=== PATIENT | male | born 1965 | race Caucasian/White ===

== ENCOUNTER 2020-01-05 18:25 | Inpatient (IN) | payer MEDICARE, SELFPAY ==
[2020-01-05] VITALS (16 sets, daily range): BP systolic 99–133; BP diastolic 61–93; PULSE 46–99; RESP 14–20; TEMP 36.4–36.8; O2SAT 90–100; BMI 288827.8; BMI 28.8; BMI 26.3
--- NOTE | 2020-01-05 18:22 | ECG_ITS ---
APPROVED REPORT Exam: Resting ECG HR:49 bpm ECG Measurements Heart Rate 49 AXES QRSd 94 QRS 72 QT 450 T 93 QTc 406 <Conclusion> Junctional rhythm ST elevation, consider inferolateral injury or acute infarct ACUTE OR Consider right ventricular involvement in acute inferior infarct Abnormal ECG Electronically signed by : Ismael Ac, 01/06/2020 08:44:43
--- NOTE | 2020-01-05 18:30 | PC.NURSE ---
Spoke to solomon prior to pt arrival stated to call cardiac catheterization technician team in, [facility] confirmed via [facility] phone, Carlo is acquisition advisor for [facility] and was with solomon, is on his way in.
--- NOTE | 2020-01-05 18:31 | IR_ITS ---
APPROVED REPORT Patient Location: Emergent Account Installer: SIS Nguyen RT (R) PROCEDURES 1. Left heart catheterization 2. Selective coronary arteriography 3. Left ventriculography 4. PTCA/stent of the right coronary artery INDICATION 1. Acute myocardial infarction, 2. Abnormal EKG, 3. Third-degree heart block SCAI INDICATION Patient presented in the field with EMS with an acute myocardial infarction. Inferior myocardial infarction with elevation. Reciprocal changes. Brought directly to the cardiac catheterization laboratory. Catheters used for the procedure were a Karlie right #4 guide catheter with sideholes, a Karlie left diagnostic catheter and a pigtail catheter Informed consent was obtained prior to the procedure. COMPLICATIONS NONE Estimated Blood Loss: LESS THAN 10 ML TECHNIQUE One percent lidocaine was used to anesthetize the right groin. The right femoral artery was accessed via the Seldinger technique. A 4-Qatari sheath was placed in the right femoral artery. The JL-4 and JR-4 catheter was also used to perform left heart catheterization left ventriculogram and selective coronary angiogram. At the end of the procedure the patient was transferred to the post-op holding area in stable condition for arterial sheath removal. Heparin and Brilinta were given prior to the procedure. ACT greater than 300 ANGIOGRAPHIC RESULTS The left main artery Angiographically normal The left anterior descending artery Smooth 20% proximal stenosis The circumflex artery Moderate in size and angiographically normal The right coronary artery Large and dominant with 99.9% critical complex proximal stenosis followed by a 50 to 60% hazy mid/distal stenosis The JONES ventriculogram reveals Normal left ventricular function with an ejection fraction of 60% The left ventricular end-diastolic pressure 22 I initially started with a 6 Qatari sheath and a Karlie right #4 guide catheter with sideholes. Immediately wired on engagement of the right coronary artery. Primary stenting was done with a 3.0 x 26 mm resolute arti drug-eluting stent at 24 zach for 8 seconds. Resulted in 0% residual stenosis. Stented the mid/distal vessel with a 3.0 x 12 mm resolute Arti drug-eluting stent. Also resulted in 0% residual stenosis taken up at 21 zach for 10 seconds. Right common retrograde femoral arteriogram performed. Sheath placed in the right common femoral artery. Secondary to this an Angio-Seal device was deployed without difficulty IMPRESSION 1. Critical one-vessel coronary artery disease with critical stenosis noted in the proximal large dominant right coronary artery and moderate to severe stenosis in the mid/distal vessel 2. Mild diffuse disease in the left coronary system 3. Preserved normal left ventricular systolic function 4. Mild elevation in left ventricular end-diastolic pressure 5. Successful angioplasty and stenting of the proximal and mid/distal large dominant right coronary artery with resolute Arti drug-eluting stents resulting in 0% residual stenosis 6. Successful placement of an Angio-Seal device in the right common femoral artery PLAN 1. Patient will continue with aggressive medical therapy. Brilinta 180 mg x 1 was already given as well as aspirin. Continue on Brilinta 90 mg twice daily. Continue on aspirin daily. Aggressive retractor modification. Left ventricular function is preserved. Patient may need an IV dose of Lasix this evening if he gets short of breath secondary to stunning of the myocardium. The present time the left ventricular function is normal. Aggressive risk factor modification. Follow-up in cardiology clinic in 1 to 2 weeks for further ev
--- NOTE | 2020-01-05 18:33 | PC.NURSE ---
Pt prepped and ready for supervisor laboratory animal facility
--- NOTE | 2020-01-05 18:35 | PC.NURSE ---
Pt to labor custodian
--- NOTE | 2020-01-05 18:52 | HMH.EDCP ---
ED Disposition Clinical Impression: Chest pain, ST elevation myocardial infarction (STEMI) Disposition: Admitted As Inpatient Condition on Discharge: Good Instructions: DI for Atypical Chest Pain - Critical Care Critical Care Time: No Attestation: On , the high probability of a clinically significant, sudden or life threatening deterioration of the following system(s) required my full and direct attention, intervention and personal management. The time I documented below is in addition to time spent performing reported procedures but includes the following listed in this critical care notation. Medical Decision Making - Medical Records Medical records reviewed: Yes: I reviewed the patient's medical records. - William Inquiry Pt receiving controlled substance: No Vital Signs: 01/05/20 18:24 Temperature 98 F Temperature Source Oral Pulse Rate [Left Radial] 49 L Respiratory Rate 18 Blood Pressure [Right Arm] 133/93 H Blood Pressure Mean [Right Arm] 106 Blood Pressure Position [Right Arm] Sitting 02 Sat by Pulse Oximetry 98 Oxygen Delivery Method Room Air - Lab Data Lab results reviewed: Yes: I reviewed the patient's lab results. Orders (Tests/Meds): ED MEDICATIONS Generic Name Dose Route Start Last Admin Trade Name Freq PRN Reason Stop Dose Admin Diphenhydramine HCl 50 mg 01/05/20 18:29 01/05/20 18:46 Benadryl 50mg/1ml Vial IV 01/05/20 18:30 50 mg ONCE ONE Administration Fentanyl Citrate 50 mcg 01/05/20 18:29 Fentanyl 100mcg/2ml Vial IV 01/06/20 18:29 Q3MINP PRN Moderate to Severe Pain Fentanyl Citrate 25 mcg 01/05/20 18:29 Fentanyl 100mcg/2ml Vial IV 01/06/20 18:29 Q3MINP PRN Moderate to Severe Pain Flumazenil 0.2 mg 01/05/20 18:29 Romazicon 0.1mg/Ml 5ml Vial IV 01/05/20 23:00 NEEDED PRN Sedation Heparin Sodium (Porcine) 10,000 unit 01/05/20 18:29 Heparin 1,000 Units/Ml 10ml Vial (Machine Operator) IV 01/05/20 22:29 NEEDED PRN Emergency Box Laser Beam Machine Operator Heparin Sodium/Sodium Chloride 3,000 unit 01/05/20 18:29 01/05/20 18:46 Heparin 1000 Units/500ml Ns (Machine Operator) IV 07/24/20 18:30 3,000 unit ONCE ONE Administration Sodium Chloride 1,000 mls @ 25 mls/hr 01/05/20 18:30 01/05/20 18:46 Sod Chlor 0.9% 1000ml Bag IV 01/06/20 18:29 25 mls/hr .Q25H EFRAÍN Administration Sodium Chloride 1,000 mls @ 999 mls/hr 01/05/20 18:45 01/05/20 18:36 Sod Chlor 0.9% 1000ml Bag IV 01/05/20 19:45 999 mls/hr .Q1H1M EFRAÍN Administration Lidocaine HCl 20 ml 01/05/20 18:29 Lidocaine 1% 5ml Pf Vial IJ 01/05/20 18:30 ONCE ONE Lidocaine HCl 20 ml 01/05/20 18:29 01/05/20 18:46 Lidocaine 1% 10ml Mdv IJ 01/05/20 18:30 10 ml ONCE ONE Administration Midazolam HCl 1 mg 01/05/20 18:29 Midazolam 2mg/2ml Vial IV 01/06/20 18:29 Q3MINP PRN Sedation Midazolam HCl 1 mg 01/05/20 18:29 Midazolam 1mg/Ml 5ml Vial IV 01/06/20 18:29 Q3MINP PRN Sedation Naloxone HCl 0.4 mg 01/05/20 18:29 Narcan 0.4mg/Ml Vial IV 01/06/20 18:29 Q5MINP PRN Decreased Respirations Nitroglycerin 800 mcg 01/05/20 18:29 Nitroglycerin 800mcg/8ml Syr (Machine Operator) IV 01/06/20 18:29 NEEDED PRN Emergency Box Laser Beam Machine Operator Verapamil HCl 2.5 mg 01/05/20 18:29 Verapamil 2.5mg/Ml 2ml Vial IV 01/05/20 18:30 ONCE ONE Discontinued Medications Generic Name Dose Route Start Last Admin Trade Name Freq PRN Reason Stop Dose Admin Heparin Sodium (Porcine) 5,000 unit 01/05/20 18:34 01/05/20 18:32 Heparin Sodium 5,000 Units/Ml Vial IV 01/05/20 18:35 5,000 unit ONCE ONE Administration Morphine Sulfate 4 mg 01/05/20 18:37 01/05/20 18:33 Morphine 4mg/Ml Syringe IV 01/05/20 18:38 4 mg ONCE ONE Administration Ticagrelor 180 mg 01/05/20 18:38 01/05/20 18:33 Brilinta 90mg Tablet PO 01/05/20 18:39 180 mg ONCE ONE Administration - ECG Data
[2020-01-05 19:26] LABS: Anion Gap 14.7 mEq/L (5-15); Blood Urea Nitrogen 12 mg/dl (9-20); Calcium 9.4 mg/dl (8.4-10.2); Carbon Dioxide 26 mmol/L (22.0-30.0); Chloride 104 mmol/L (98-107); Creatinine Clearance Estimated 152 mL/min (50-200); Estimated Glomerular Filt Rate 101 ml/min (>60); GFR (African American) 122 ML/MIN (>60); Glucose 114 mg/dl (74-100); Sodium 142 mmol/L (136-145)
[2020-01-05 19:27] LABS: Potassium 2.7 mmoL/L (3.5-5.1)
[2020-01-05 19:28] LABS: Basophils # 0.1 K/mm3 (0-0.2); Basophils % 0.8 % (0.1-2.0); Eosinophils # 0.4 K/mm3 (0.0-0.4); Eosinophils % 2.8 % (0.1-12.0); Hemoglobin 17.8 g/dL (14.1-18.0); Lymphocytes # 6.5 K/mm3 (0.7-4.5); Lymphocytes % 43.6 % (10-50); Mean Corpuscular HGB Conc 35.5 g/dL (31.8-35.4); Mean Corpuscular Hemoglobin 31.9 pg (27.0-31.2); Mean Corpuscular Volume 89.8 fl (80-94); Monocytes # 0.8 K/mm3 (0.1-1.0); Monocytes % 5.4 % (1.7-9.3); Neutrophils # 7.1 K/mm3 (1.8-7.8); Neutrophils % 47.5 % (37.0-80.0); Platelet Count 305 K/mm3 (142-424); Red Blood Count 5.57 M/mm3 (4.60-6.20); Red Cell Distribution Width 13.5 % (11.5-17.5); White Blood Count 14.9 K/mm3 (4.8-10.8)
--- NOTE | 2020-01-05 19:47 | PC.NURSE ---
manufacturing laborer notified during report that pt has critical potassium level of 2.7
[2020-01-05 19:50] LABS: CATHL Activated Clotting Time 337 SEC (74-125)
--- NOTE | 2020-01-05 19:51 | PC.NURSE ---
patient up to floor via stretcher.
--- NOTE | 2020-01-05 21:04 | PC.NURSE ---
Pt sleeping at this time. VSS. (R) groin cath site with DSG C/D/I. No drainage or hematoma noted. Med reconciliation not obtained at this time due to pt sleeping. Daughter states pt takes a medication for his heart, but is not aware of what it is. Pt's daughter is also concerned about medication that pt will be placed on due to costs. Pt does not have insurance according to daughter.
--- NOTE | 2020-01-05 22:31 | PC.NURSE ---
Pt is currently sitting up in bed. Denies any discomfort at this time. Has sat up on side of bed and urinated 200 ml dark yellow urine. VSS. BP 116/83, HR 61, O2 99% RA, T 97.5 A. Pt is currently Sinus rhythm on telemetry with ST elevation. MD aware. 60 mg of potassium administered per aug. (R) groin cath site remains C/D/I. No drainage noted to DSG. No hematoma noted. Will continue to monitor.
--- NOTE | 2020-01-05 22:36 | PC.NURSE ---
Pt states he takes a blood pressure medicine sometimes. He stated he thinks it's metoprolol. He also stated that he is suppose to take a cholesterol medicine, but hasn't been taking it.
[2020-01-06] VITALS (13 sets, daily range): BP systolic 103–132; BP diastolic 67–90; PULSE 60–78; RESP 14–22; TEMP 36.5–36.9; O2SAT 97–100; BMI 26.4
[2020-01-06 06:38] LABS: Basophils # 0.1 K/mm3 (0-0.2); Basophils % 0.4 % (0.1-2.0); Eosinophils # 0.1 K/mm3 (0.0-0.4); Eosinophils % 0.8 % (0.1-12.0); Hematocrit 45.9 % (42.0-52.0); Lymphocytes # 3.1 K/mm3 (0.7-4.5); Lymphocytes % 23.3 % (10-50); Mean Corpuscular HGB Conc 34.4 g/dL (31.8-35.4); Mean Corpuscular Hemoglobin 31.4 pg (27.0-31.2); Mean Corpuscular Volume 91.4 fl (80-94); Mean Platelet Volume 7.8 fl (7.4-10.4); Monocytes # 0.4 K/mm3 (0.1-1.0); Monocytes % 3.3 % (1.7-9.3); Neutrophils # 9.6 K/mm3 (1.8-7.8); Neutrophils % 72.3 % (37.0-80.0); Platelet Count 222 K/mm3 (142-424); Red Blood Count 5.02 M/mm3 (4.60-6.20); Red Cell Distribution Width 13.7 % (11.5-17.5); White Blood Count 13.3 K/mm3 (4.8-10.8)
[2020-01-06 07:10] LABS: Hemoglobin 15.8 g/dL (14.1-18.0)
[2020-01-06 07:33] LABS: Chloride 106 mmol/L (98-107); Potassium 4.9 mmoL/L (3.5-5.1); Sodium 138 mmol/L (136-145)
[2020-01-06 07:36] LABS: Anion Gap 11.9 mEq/L (5-15); Blood Urea Nitrogen 12 mg/dl (9-20); Carbon Dioxide 25 mmol/L (22.0-30.0); Creatinine Clearance Estimated 186 mL/min (50-200); Estimated Glomerular Filt Rate 140 ml/min (>60); GFR (African American) 170 ML/MIN (>60)
[2020-01-06 07:37] LABS: Calcium 8.6 mg/dl (8.4-10.2); Glucose 123 mg/dl (74-100)
--- NOTE | 2020-01-06 08:34 | HMH.HP ---
*Admission Date: 01/05/20 *Chief complaint: Chest pain *History of present illness: Norman is a 54-year-old white male with a history of hypertension and hyperlipidemia. He is known to me from a single office visit about 4 months ago to establish care. At that time his blood pressure medication was refilled and he was also diagnosed with hyperlipidemia and started on Crestor although he states he could not afford the medication. Two days ago he began having some mild chest pains and yesterday the chest pain became worse and persisted throughout the day the pain radiated to his neck and was associated with some nausea. He finally called EMS and was transported to [facility]. In route to the ER, his EKG showed ST elevation in the inferior leads. On arrival, he was routed through the emergency room and taken directly to the Freight Manager where he underwent left heart cath with findings of critical stenosis in the RCA which was stented with [address] Adonay Matos. Risk factors for heart disease include hypertension, hyperlipidemia, male gender, tobacco abuse, family history. This morning, he states he is feeling better. He still notes some twinges of chest pain and feels slightly short of breath. His vital signs of been stable and monitor shows no arrhythmias. [facility] History Medical History: Reports:: Hyperlipidemia, Hypertension, Migraine Denies:: Diabetes Mellitus Type 1, Diabetes Mellitus Type 2 *Have you ever received a pneumonia vaccine?: No *Have you received a flu vaccine this season?: No Other Medical History: Reports: Other (herniated disc with chronic back pain) Other Surgeries: Yes: Cardiac Catheterization, Other (ear sugery) - *Social History Last grade of school completed: High school graduate Smoking Status: Current every day smoker Tobacco Type: cigarettes # Packs/Day (cigarettes): 2 Alcohol Intake: current Alcohol Intake Frequency:: holidays/special occasions only *Occupational Status:: disabled (back injury) Housing: other Household Members: other *Travel in the last 8 weeks: None Family Hx:: Coronary Artery Disease, Heart Attack (father), Hypertension (mother, sister) Review of Systems - Constitutional Denies chills, Denies fever(s) - Eyes Denies change in vision - ENT Reports hearing loss, Denies headache(s) - *Cardiovascular Reports other (See HPI) - *Respiratory Denies chest congestion, Denies cough, Denies shortness of breath - *Gastrointestinal Reports heartburn, Reports nausea, Denies abdominal pain, Denies vomiting - *Genitourinary Denies difficulty urinating, Denies painful urination - *Musculoskeletal Reports back pain - Integumentary/Breasts Denies yellowing of the skin, Denies itching - *Neurologic Denies confusion, Denies dizziness, Denies tremor(s) - Psychiatric Denies anxiety, Denies depression, Denies memory loss - Endocrine Denies excessive sweating - Hematologic/Lymphatic Denies easy bruising - Allergic/Immunologic Denies itchy eyes Meds Home Medications Medication Instructions Recorded Confirmed Type Metoprolol Succinate [Metoprolol 25 mg PO DAILY 01/06/20 01/06/20 History Succinate 25mg Tablet*] Rosuvastatin Calcium 20 mg PO HS 01/06/20 01/06/20 History Allergies Allergy/AdvReac Type Severity Reaction Status Date / Time No Known Allergies Allergy Verified 01/05/20 18:29 Exam Vital signs and Labs for Last 24 Hours: Temp Pulse Resp BP Pulse Ox 97.7 F 64 22 123/85 99 01/06/20 08:00 01/06/20 06:00 01/06/20 08:00 01/06/20 06:00 01/06/20 08:00 Laboratory Results - last 24 hr 01/05/20 18:00: Activated Clotting Time 337 H* 01/05/20 18:05: WBC 14.9 H, RBC 5.57, Hgb 17.8, Hct 50.0, MCV 89.8, MCH 31.9 H, MCHC 35.5 H, RDW 13.5, Plt Count 305, MPV 8.0, Neut % (Auto) 47.5, Lymph % (Auto) 43.6, Rosebud % (Auto) 5.4, Eos % (Auto) 2.8, Baso % (Auto) 0.8, Neut # (Auto) 7.1, Lymph # (Auto) 6.5 H, Rosebud # (Auto) 0.8, Eos # (
--- NOTE | 2020-01-06 09:39 | HMH.PHAVTE ---
[facility] Pharmacy VTE Monitoring - Patient Demographics Admission date: 01/05/20 Report Date: 01/06/20 Time: 09:39 Allergies/Adverse Reactions: Patient Allergies No Known Allergies Allergy (Verified 01/05/20 18:29) Height: 1.88 m Weight: 93.525 kg Patient Problems: Current Active Problems Chest pain (Acute) ST elevation myocardial infarction (STEMI) (Acute) - VTE Risk Labs: VTE Related Lab Results Hgb 15.8 g/dL (14.1-18.0) D 01/06/20 06:05 Hct 45.9 % (42.0-52.0) 01/06/20 06:05 Plt Count 222 K/mm3 (142-424) D 01/06/20 06:05 BUN 12 mg/dl (9-20) 01/06/20 06:05 Creatinine 0.60 mg/dl (0.66-1.25) L D 01/06/20 06:05 Estimated Creat Clear 186 mL/min (50-200) 01/06/20 06:05 VTE Risk Level: Moderate Risk - Prophylaxis VTE Prophylaxis Ordered?: Yes Types of VTE Prophylaxis: TEDS Knee High Location of Applied Device: Bilateral Lower Extremeties
--- NOTE | 2020-01-06 09:56 | HMH.PHAINT ---
HOME MEDICATIONS RECONCILED FROM RX LIST FROM A.
--- NOTE | 2020-01-06 15:36 | PC.NURSE ---
PT IS CURRENTLY RESTING IN BED WITH EYES CLOSED. PT HAS BEEN ALERT AND ORIENTED*4 T/O SHIFT, NO COMPLAINTS OF PAIN. PT DID COMPLAIN OF SOA THIS AM BUT SAYS IT IMPROVED ON ITS OWN, VSS, SINUS WITH SLIGHT ST ELEVATION ON TELEMETRY, NO COMPLAINTS OF CHEST PAIN AT THIS TIME, CATH SITE IS C/D/I WITH NO DRAINAGE, BLEEDING, OR HEMATOMA NOTED, PT DENIES PAIN UPON PALPATION, PEDAL PULSES PALPABLE BILATERALLY, PT HAS AMBULATED TO PER SELF THIS SHIFT WITH NO C/O DIZZINESS WITH AMBULATION. PT C/O NAUSEA THIS AFTERNOON PRN ZOFRAN ADMIN PER MAR SYMPTOMS IMPROVED STATED BY PT,
--- NOTE | 2020-01-06 19:32 | PC.NURSE ---
patient stated he wants to go home, educated on risks leaving against medical advice. patient continues to state he wants to go home, daughter will come get him. dr. varela notified, wants patient o continue brillinta 90 mg bid and asa [address] varela would also like patient to make and appointment wednesday.
--- NOTE | 2020-01-06 19:43 | PC.NURSE ---
discussed discharge instructions for brillinta, asa and follow up appointment. patient agreeable, ama form signed and witnessed
--- NOTE | 2020-01-06 19:49 | PC.NURSE ---
Addendum entered by Dorothea Montes RN 01/06/20 19:53: iv removed from left ac Original Note: 18 guage iv catheter removed from right a/c, no signs of infiltrated. patient tolerated procedure without incident. patient denies cp at this time
--- NOTE | 2020-01-06 19:59 | PC.NURSE ---
after patient left floor, patients room smelled of cigarette smoke.
--- NOTE | 2020-01-08 07:41 | HMH.PHACLD ---
Richmond Gaines has received discharge medication counseling on the following medications: PATIENT WAS NOT COUNSELED ON DISCHARGE MEDICATIONS BECAUSE PATIENT LEFT AMA DURING ENGINEERING DRAWINGS CHECKER ON 01/06/20. PATIENT WAS SENT HOME WITH A 30 DAY SUPPLY OF BRILINTA AND WAS TOLD TO RESUME METOPROLOL AND CRESTOR. PATIENT WAS ALSO TOLD TO START ASPIRIN [address] MCNEILL. TERESSA/ARB WAS NOT ADDRESSED BEFORE HE LEFT AMA. PATIENT DID COMPLAIN TO NURSE THAT CRESTOR WAS TOO EXPENSIVE TO FILL AND BRILINTA WAS CAUSING SHORTNESS OF AIR. PATIENT WAS TOLD TO STAY TO GET THESE ISSUES ADDRESSED BUT HE DID NOT.
--- NOTE | 2020-01-08 09:12 | HMH.DCSUM ---
General - General Admission date:: 01/05/20 <Kraig Wilson - 01/22/20 08:08> 01/05/20 <RamseyCassi che - 01/08/20 09:39> Discharge date: 01/06/20 <Cassi Ramsey - 01/08/20 09:39> HPI HPI: Norman is a 54-year-old white male with a history of hypertension and hyperlipidemia. He was known to Dr. Wilson from a single office visit about 4 months ago to establish care. At that time his blood pressure medication was refilled and he was also diagnosed with hyperlipidemia and started on Crestor although he stated that he could not afford the medication. Two days prior to admission he began having some mild chest pains. The chest pain became worse and persisted throughout the day and radiated to his neck and was associated with some nausea. He finally called EMS and was transported to [facility]. In route to the ER, his EKG showed ST elevation in the inferior leads. On arrival, he was routed through the emergency room and taken directly to the [facility]usement [facility] Entertainer where he underwent left heart cath with findings of critical stenosis in the RCA which was stented with [address] Adonay Matos. Risk factors for heart disease include hypertension, hyperlipidemia, male gender, tobacco abuse, family history. The following morning, he stated that he was feeling better. He still noted some twinges of chest pain and felt slightly short of breath. His vital signs were stable and monitor showed no arrhythmias. <Cassi Ramsey - 01/08/20 09:39> Hospital Course Hospital Course: In the emergency room patient was noted to have a [address] elevation in the inferior leads. He was given heparin 5000 units IV once along with morphine 4 mg IV and Brilinta 180 mg. He was also given verapamil 2.5 mg IV once. He was taken straight to the cardiac [facility]. Cath results revealed a one-vessel coronary artery disease with critical stenosis in the proximal large dominant right coronary artery and moderate to severe stenosis in the mid/distal vessel. Also noted was mild diffuse disease in the left coronary artery. He had preserved normal left ventricular systolic function with mild elevation in the left ventricular end-diastolic pressure. Successful angioplasty and stenting of the proximal and mid/distal large dominant right coronary artery. Successful placement of an Angio-Seal device in the right common femoral artery. On admission white blood cell count was 14,900 with a hemoglobin of 17.8 and hematocrit of 50. Blood chemistry showed potassium of 2.7 with a sodium of 142. Renal function was normal. He was given 60 mill equivalents of potassium p.o. Repeat labs on 01/05 revealed a sodium of 138 and potassium of 4.9. CBC with a white blood cell count of 13,300. After admission and stent placement patient felt much better. He experienced some twinges of chest pain and felt slightly short of breath. Vital signs were stable and monitor showed no arrhythmias. Patient was ambulating independently without problems. He did have some nausea in the afternoon which was relieved with PRN Zofran. On 01/06/2020 around 7:30 PM patient stated that he wanted to go home. He was educated on the risk of leaving AGAINST MEDICAL ADVICE. Patient continued with wanting to leave and stated his daughter was coming to get him. Dr. Wilson was notified. Patient was to make an appointment for 01/07. Nurses discussed instructions for Brilinta and aspirin and follow-up appointment. Patient was agreeable. He signed the AMA form and left. <Cassi Ramsey - 01/08/20 09:39> Objective Vital signs: Temp Pulse Resp BP Pulse Ox 97.9 F 76 17 131/90 98 01/06/20 18:00 01/06/20 18:00 01/06/20 18:00 01/06/20 18:00 01/06/20 18:00 <Kraig Wilson - 01/22/20 08:08> Temp Pulse Resp BP Pulse Ox 97.9 F 76 17 131/90 98 01/06/20 18:00 01/06/20 18:00 01/06/20 18:00 01/06/20 18:00 01/06/20 18:00 <Cassi Ramsey - 07
== END 2020-01-06 19:55 | disposition left against medical advice (07) | DRG 247 ==
LOC: ER 18:58 → CATHLAB 19:01 → 2ND 19:20
PROVIDERS: Admitting Provider Family Medicine; Emergency Provider Family Medicine; PCP Family Medicine; Visit Provider Internal Medicine Cardiovascular Disease
DX: I21.11 ST elevation (STEMI) myocardial infarction involving right coronary artery (principal); I10 Essential (primary) hypertension; E78.5 Hyperlipidemia, unspecified; Z72.0 Tobacco use; M54.9 Dorsalgia, unspecified; Z91.19 Patient's noncompliance with other medical treatment and regimen
CPT/HCPCS: 36415; 80048; 85025; 85347; 92941; 93005; 93458; 96365; 96375; 99152; 99281; 99284; C1725; C1760; C1769; C1876; C1894; C9606; J1644; J2405; Q9967

== ENCOUNTER → 2020-01-31 12:41 | Outpatient (CLI) | payer MEDICARE, SELFPAY ==
--- NOTE | 2020-01-31 12:51 | CA_ITS ---
APPROVED REPORT EXAM: Comprehensive 2D, Doppler, and color-flow Echocardiogram [employer]: Analy Mittal, RT(R) Ht: 5 ft 11 in Wt: 205lbs BSA: 2.13 BP: 139/84 mmHg Indications: smoker, HTN, SOB, hyperlipidemia, CAD, STEMI, GERD, stents, DE 1 month ago 2D Dimensions LVOT 1.86 cm (M/F) 1.5-2.5 M-Mode Dimensions RVDd 2.57 cm (0.9-2.6) LVDd 4.79 cm (3.5-5.7) LVDs 3.68 cm (3.5-5.7) IVSd 0.82 cm (0.6-1.1) PWd 0.71 cm (0.6-1.1) EF (Teich) 46.40% FS 23.20% EDV (Teich) 107.00 mL ESV (Teich) 57.40 mL LV Diastology E/A Ratio 0.98 Mitral Valve MV A Velocity 72.00 (40-130 cm/s) Left Ventricle Left atrium is mildly enlarged, left ventricle is normal size, mild concentric left ventricular hypertrophy, visually estimated ejection fraction 45 to 50%, there is moderate hypokinesis involving the basal septum and inferior basal wall. Diastolic parameters are inconclusive. Right Ventricle Right atrium and right ventricular normal size and contractility. Aortic Valve Aortic valve is thickened and calcified, leaflet continue to display good mobility. There is no aortic stenosis or aortic insufficiency. Mitral Valve Mitral valve is grossly normal, there is mild mitral regurgitation. Tricuspid Valve Tricuspid valve is grossly normal, there is mild tricuspid regurgitation, tricuspid regurgitation jet velocity is inadequate for calculation of the right ventricular systolic pressure. Pulmonic Valve Pulmonic valve is poorly visualized. Great Vessels Aortic root is normal size. Pericardium No significant pericardial effusion noted. Conclusion 1. Technically difficult study because of the patient factors and poor acoustic windows, normal left ventricular size, visually estimated ejection fraction 45 to 50% with segmental wall motion abnormalities described above, diastolic parameters are inconclusive. 2. Thickened and calcified aortic valve without aortic stenosis aortic insufficiency. 3. Mild mitral and tricuspid regurgitation. 4. No significant pericardial effusion noted. Electronically signed by : Artem Castillo, 02/01/2020 10:44:13
== END ==
LOC: RT 12:42
PROVIDERS: PCP Family Medicine; Visit Provider Nurse Practitioner Family
DX: E78.5 Hyperlipidemia, unspecified (principal); G89.29 Other chronic pain; I10 Essential (primary) hypertension; I21.3 ST elevation (STEMI) myocardial infarction of unspecified site; I25.10 Atherosclerotic heart disease of native coronary artery without angina pectoris; M54.9 Dorsalgia, unspecified; Z72.0 Tobacco use
CPT/HCPCS: 93306

== ENCOUNTER 2021-12-08 13:38 | Emergency (ER) | payer MEDICARE, SELFPAY ==
[2021-12-08 13:50] VITALS: BP 169/94; PULSE 73; RESP 18; TEMP 36.7; O2SAT 98; BMI 25.7
--- NOTE | 2021-12-08 14:13 | HMH.EDUTC ---
[facility] Disposition Clinical Impression: Sinusitis Qualifiers: Sinusitis location: unspecified location Chronicity: acute Recurrence: non-recurrent Qualified Code(s): J01.90 - Acute sinusitis, unspecified Disposition: Home, Self-Care Condition on Discharge: Good Instructions: DI for Sinusitis Additional Instructions: Drink plenty of fluids. Take tylenol or ibuprofen for pain or fever. Take the medications as directed. Follow up with your regular doctor. GO TO THE ER FOR ANY WORSENING SYMPTOMS Quarantine until you know the results of your covid-19 test. Notify your school or workplace of your results and follow their instructions regarding return to work/school. Prescriptions: Benzonatate [Benzonatate 100mg cap] 100 mg PO TIDP PRN #30 cap PRN Reason: Cough Transmission Status: Received by [facility] methylPREDNISolone [Medrol] 4 mg PO DIRECTED 6 Days #21 packet Transmission Status: Received by [facility] guaiFENesin [Mucinex 600mg tablet] 1 - 2 tab PO BIDP PRN #30 tab PRN Reason: Congestion Transmission Status: Received by [facility] Azithromycin [Z-Darian 250mg Tab*] 250 mg PO UD DOSE PK #6 tab Transmission Status: Received by [facility] Referrals: Provider,Referral, [Primary Care Provider] - Time of Disposition: 14:41 Medical Decision Making - Medical Records Medical records reviewed: No: I reviewed the patient's medical records. - William Inquiry Pt receiving controlled substance: No Vital Signs: 12/08/21 13:50 12/08/21 14:58 Temperature 98.0 F 98.0 F Temperature Source Oral Pulse Rate 73 Pulse Rate [Left] 73 Respiratory Rate 18 18 Blood Pressure 169/94 H Blood Pressure [Right Arm] 169/94 H Blood Pressure Mean [Right Arm] 119 02 Sat by Pulse Oximetry 98 - Lab Data Lab results reviewed: Yes: I reviewed the patient's lab results. Lab Results 12/08/21 13:54: Group A Strep Rapid Negative Orders (Tests/Meds): ORDERS Category Date Time Status Covid-19 Nasal PCR ([facility]) Routine Lab 12/08/21 14:44 Received Strep Screen Confirmation Stat Micro 12/08/21 13:54 Received [facility] HPI - General Stated complaint: ear pain, head congestion, throat pain Time Seen by Provider: 12/08/21 14:13 Description of Symptoms (Recalled from Triage Doc. by RN): patient comes in today with complaints of right sided throat pain, right ear pain, right sided neck pain. symptoms began 1 week ago HEENT Symptoms (Recalled from RN notes): Yes Resp Symptoms (Recalled from RN notes): Yes Skin Symptoms (Recalled from RN notes): No MS Symptoms (Recalled from RN notes): No Functional Status (Recalled from RN notes): wnl - History of Present Illness Provider Complaint: He states that he has had a sore throat for the past 1 week approx. - Related Data Home Medications Medication Instructions Recorded Confirmed Metoprolol Succinate [Metoprolol 25 mg PO DAILY 01/06/20 01/22/20 Succinate 25mg Tablet*] Rosuvastatin Calcium 20 mg PO HS 01/06/20 01/22/20 Previous Rx's Medication Instructions Recorded aspirin 81 mg tablet,delayed 81 mg PO DAILY #30 tab 01/22/20 release lisinopril 5 mg tablet 5 mg PO DAILY #30 tab 01/22/20 clopidogrel 75 mg tablet 75 mg PO DAILY #30 tab 01/08/21 Azithromycin [Z-Darian 250mg Tab*] 250 mg PO UD DOSE PK #6 tab 12/08/21 Benzonatate [Benzonatate 100mg 100 mg PO TIDP PRN #30 cap 12/08/21 cap] guaiFENesin [Mucinex 600mg tablet] 1 - 2 tab PO BIDP PRN #30 tab 12/08/21 methylPREDNISolone [Medrol] 4 mg PO DIRECTED 6 Days #21 12/08/21 packet Allergies Allergy/AdvReac Type Severity Reaction Status Date / Time No Known Allergies Allergy Verified 01/22/20 14:40 - Worker's Comp Is this a Worker's Comp case?: No [facility] History - Hepatitis A Screen Attestation statement:: This patient has been screened for Hepatitis A risk factors. I have reviewed the patient's past medical history: Yes Medical H
[2021-12-08 14:25] LABS: Strep Scrn Group A (Rapid) Negative (Negative)
[2021-12-08 14:58] VITALS: BP 169/94; PULSE 73; RESP 18; TEMP 36.7
== END 2021-12-08 14:59 | disposition home or self-care (01) ==
LOC: UTC 13:41
PROVIDERS: Emergency Provider Nurse Practitioner Family
DX: J01.90 Acute sinusitis, unspecified (principal)
CPT/HCPCS: 87430; 99212; C9803; G0463; U0003; U0005

== ENCOUNTER → 2021-12-25 11:54 | Outpatient (CLI) | payer MEDICARE, SELFPAY ==
[2021-12-25 12:20] LABS: Basophils # 0.2 K/mm3 (0-0.2); Basophils % 2.5 % (0.1-2.0); Eosinophils # 0.3 K/mm3 (0.0-0.4); Eosinophils % 3.4 % (0.1-12.0); Hematocrit 50.5 % (42.0-52.0); Hemoglobin 16.4 g/dL (14.1-18.0); Lymphocytes # 1.7 K/mm3 (0.7-4.5); Lymphocytes % 23.1 % (10-50); Mean Corpuscular HGB Conc 32.5 g/dL (31.8-35.4); Mean Corpuscular Hemoglobin 29.9 pg (27.0-31.2); Mean Platelet Volume 8.4 fl (7.4-10.4); Monocytes # 0.4 K/mm3 (0.1-1.0); Neutrophils # 4.9 K/mm3 (1.8-7.8); Platelet Count 237 K/mm3 (142-424); Red Blood Count 5.49 M/mm3 (4.60-6.20); Red Cell Distribution Width 13.4 % (11.5-17.5); White Blood Count 7.4 K/mm3 (4.8-10.8)
[2021-12-25 12:40] LABS: Alanine Aminotransferase 27 U/L (12-78); Alkaline Phosphatase 120 U/L (38-126); Anion Gap 12.9 mEq/L (5-15); Aspartate Amino Transferase 29 U/L (17-59); Bilirubin,Indirect 0.2 mg/dL (0.0-0.9); Bilirubin,Total 0.2 mg/dl (0.2-1.3); Bilirubin,Unconjugated 0.5 mg/dL (0.0-1.1); Blood Urea Nitrogen 12 mg/dl (9-20); Calcium 9.6 mg/dl (8.4-10.2); Carbon Dioxide 30 mmol/L (22.0-30.0); Chloride 102 mmol/L (98-107); Chol/HDL Ratio 7.3 (1-3.5); Cholesterol 255 mg/dl (140-200); Estimated Glomerular Filt Rate 117 ml/min (>60); GFR (African American) 141 ML/MIN (>60); Glucose 121 mg/dl (74-100); HDL Cholesterol 35 mg/dl (40-60); Magnesium 1.8 mg/dl (1.6-2.3); Potassium 4.9 mmoL/L (3.5-5.1); Sodium 140 mmol/L (136-145); Total Protein,Serum 6.9 g/dl (6.3-8.2); Triglycerides 163 mg/dl (30-150); VLDL Cholesterol 33 mg/dL (0-40)
[2021-12-25 12:51] LABS: Direct LDL Cholesterol 195.34 mg/dL (100-129)
[2021-12-25 12:56] LABS: Free T4 (Free Thyroxine) 0.96 ng/dl (0.78-2.19)
[2021-12-25 13:10] LABS: Thyroid Stimulating Hormone 1.12 uIU/mL (0.465-4.68)
== END ==
PROVIDERS: Visit Provider Nurse Practitioner
DX: E78.5 Hyperlipidemia, unspecified (principal); I10 Essential (primary) hypertension; I25.10 Atherosclerotic heart disease of native coronary artery without angina pectoris; K21.9 Gastro-esophageal reflux disease without esophagitis; R06.02 Shortness of breath; Z72.0 Tobacco use; I21.11 ST elevation (STEMI) myocardial infarction involving right coronary artery
CPT/HCPCS: 36415; 80048; 80061; 80076; 83735; 84439; 84443; 85025

== ENCOUNTER 2023-07-21 10:10 | Outpatient (CLI) | payer MEDICARE, SELFPAY ==
[2023-07-21 10:39] LABS: Basophils # 0.1 K/mm3 (0-0.2); Eosinophils # 0.4 K/mm3 (0.0-0.4); Eosinophils % 4.2 % (0.1-12.0); Hematocrit 46.9 % (42.0-52.0); Hemoglobin 16.2 g/dL (14.1-18.0); Lymphocytes # 2.6 K/mm3 (0.7-4.5); Lymphocytes % 30.1 % (10-50); Mean Corpuscular HGB Conc 34.6 g/dL (31.8-35.4); Mean Corpuscular Hemoglobin 30.7 pg (27.0-31.2); Mean Corpuscular Volume 88.6 fl (80-94); Mean Platelet Volume 8.1 fl (7.4-10.4); Monocytes # 0.4 K/mm3 (0.1-1.0); Monocytes % 4.7 % (1.7-9.3); Neutrophils # 5.3 K/mm3 (1.8-7.8); Platelet Count 201 K/mm3 (142-424); Red Cell Distribution Width 13.2 % (11.5-17.5); White Blood Count 8.8 K/mm3 (4.8-10.8)
[2023-07-21 11:31] LABS: Chloride 105 mmol/L (98-107); Potassium 3.8 mmoL/L (3.5-5.1); Sodium 135 mmol/L (136-145)
[2023-07-21 11:33] LABS: Alanine Aminotransferase 23 U/L (12-78); Alkaline Phosphatase 109 U/L (38-126); Anion Gap 7.8 mEq/L (5-15); Aspartate Amino Transferase 26 U/L (17-59); Bilirubin,Direct 0.3 mg/dl (0.0-0.4); Bilirubin,Indirect 0.1 mg/dL (0.0-0.9); Bilirubin,Total 0.4 mg/dl (0.2-1.3); Bilirubin,Unconjugated 0.1 mg/dL (0.0-1.1); Blood Urea Nitrogen 15 mg/dl (9-20); Carbon Dioxide 26 mmol/L (22.0-30.0); Cholesterol 238 mg/dl (140-200); Estimated Glomerular Filt Rate 100 ml/min (>60); GFR (African American) 121 ML/MIN (>60); Triglycerides 320 mg/dl (30-150); VLDL Cholesterol 64 mg/dL (0-40)
[2023-07-21 11:34] LABS: Albumin Level 3.8 g/dl (3.5-5.0); Calcium 8.7 mg/dl (8.4-10.2); Chol/HDL Ratio 9.9 (1-3.5); Glucose 95 mg/dl (74-100); HDL Cholesterol 24 mg/dl (40-60); Total Protein,Serum 6.7 g/dl (6.3-8.2)
[2023-07-21 11:51] LABS: Direct LDL Cholesterol 149.11 mg/dL (100-129)
[2023-07-21 12:05] LABS: Thyroid Stimulating Hormone 2.08 uIU/mL (0.465-4.68)
== END 2023-07-21 23:59 ==
LOC: LAB 10:11
PROVIDERS: Visit Provider Physician Assistant
DX: E78.5 Hyperlipidemia, unspecified (principal); I25.10 Atherosclerotic heart disease of native coronary artery without angina pectoris; Z72.0 Tobacco use; I11.9 Hypertensive heart disease without heart failure; R06.00 Dyspnea, unspecified; I63.9 Cerebral infarction, unspecified; E11.9 Type 2 diabetes mellitus without complications; Z79.899 Other long term (current) drug therapy
CPT/HCPCS: 36415; 80048; 80061; 80076; 84439; 84443; 85025

== ENCOUNTER 2023-08-02 07:50 | Outpatient (CLI) | payer MEDICARE, SELFPAY ==
--- NOTE | 2023-08-02 07:51 | US_ITS ---
FINAL REPORT CLINICAL HISTORY: nausea/abdominal pain COMPARISON: None FINDINGS: Sonographic images of the right upper quadrant were obtained. The pancreas is partially obscured. There is a 1.6 cm benign-appearing cyst in the left lobe of the liver. The gallbladder is mildly distended with a trace amount of sludge. There is no evidence of biliary ductal dilatation.The common duct measures 3 mm. Limited images of the right kidney are unremarkable. IMPRESSION: Benign appearing liver cyst. Mildly distended gallbladder with trace sludge. Reviewed, Interpreted and Dictated by Michel Sellers MD Transcribed by Debi Pena Authenticated and [facility]
--- NOTE | 2023-08-02 08:23 | CA_ITS ---
APPROVED REPORT EXAM: Comprehensive 2D, Doppler, and color-flow Echocardiogram Profile Saw Setup Operator: Joceline Thomas CRT Ht: 5 ft 11 in Wt: 211lbs BSA: 2.16 BP: 134/83 mmHg Indications: CAD, Hyperlipidemia, Hypertension/HDD, STENTS, DIZZINESS 2D Dimensions LA Volume 42.10 mL LA Volume Index 19.00 mL/m2 (M/F) 16-34 M-Mode Dimensions RVDd 3.15 cm (0.9-2.6) LA Diam 3.17 cm (1.9-4.0) LVDd 4.47 cm (3.5-5.7) LVDs 3.54 cm (3.5-5.7) IVSd 1.14 cm (0.6-1.1) PWd 0.61 cm (0.6-1.1) EF (Teich) 42.50% FS 20.80% EDV (Teich) 91.00 mL TAPSE 1.86 (<1.7) ESV (Teich) 52.30 mL LV Diastology E Decel Time 193 (160-240 msec) E/A Ratio 1.19 MED A' 7.80 cm/s LAT A' 10.40 cm/s Aortic Valve AO Peak GR. 7.80 mmHg Mitral Valve MV A Velocity 75.0 (40-130 cm/s) E/A Ratio 1.19 Pulmonary Valve PV Peak Velocity 112.0 (50-150 cm/s) Tricuspid Valve TR P. Velocity 224.00 cm/s RAP Estimate 10.00 mmHg RVSP 30.10 mmHg Left Ventricle The left ventricle is normal size. The left ventricular systolic function is normal. The left ventricular ejection fraction is within the normal range. There is increased LV wall thickness. There is normal LV segmental wall motion. The left ventricular diastolic function is normal. LVEF is 55%. Right Ventricle The right ventricle is mildly dilated. The right ventricular systolic function is normal. Atria The left atrium size is normal. The right atrium size is normal. There is no Doppler evidence of interatrial shunt. Aortic Valve The aortic valve is mildly thickened. There is no aortic valvular stenosis. Trace aortic regurgitation. Mitral Valve The mitral valve is normal in structure. No evidence of mitral valve stenosis. Trace mitral regurgitation. Tricuspid Valve The tricuspid valve leaflets are thin and pliable. Trace tricuspid regurgitation. There is insufficient TR jet to estimate RVSP. Pulmonic Valve The pulmonary valve is normal in structure. Trace pulmonic regurgitation. Great Vessels The aortic root is not well-visualized. IVC is normal in size and collapses >50% with inspiration. Pericardium There is no pericardial effusion. Other Information Study Quality: Technically Difficult Conclusion Technically difficult study due to poor acoustic windows. Normal biventricular systolic function. Mild RV dilation. No significant valvular stenosis or regurgitation. Electronically signed by : Lisha Ibarra MD 08/04/2023 10:59:02
== END 2023-08-02 23:59 ==
PROVIDERS: Visit Provider Physician Assistant
DX: R11.0 Nausea (principal); I11.9 Hypertensive heart disease without heart failure; I25.10 Atherosclerotic heart disease of native coronary artery without angina pectoris; R10.9 Unspecified abdominal pain; E78.5 Hyperlipidemia, unspecified; R06.00 Dyspnea, unspecified; F17.210 Nicotine dependence, cigarettes, uncomplicated
CPT/HCPCS: 76705; 93306

== ENCOUNTER 2025-01-03 21:22 | Emergency (ER) | payer MEDICARE, SELFPAY ==
--- NOTE | 2025-01-03 21:34 | XR_ITS ---
PROCEDURE INFORMATION: Exam: XR Chest Exam date and time: 01/03/2025 9:40 PM Age: 59 years old Clinical indication: Pain; Chest pressure; Additional info: Chest pain TECHNIQUE: Imaging protocol: Radiologic exam of the chest. Views: 1 view. COMPARISON: No relevant prior studies available. FINDINGS: Lungs: Unremarkable. No consolidation. Pleural spaces: Unremarkable. No pleural effusion. No pneumothorax. Heart/Mediastinum: Unremarkable. No cardiomegaly. Bones/joints: Unremarkable. IMPRESSION: No acute findings.
--- NOTE | 2025-01-03 21:35 | ECG_ITS ---
APPROVED REPORT Exam: Resting ECG HR:92 bpm ECG Measurements Heart Rate 92 AXES VA 141 P 54 QRSd 94 QRS 13 QT 339 T 0 QTc 389 Conclusion Normal sinus rhythm with occasional PVC no other acute ST or T wave changes concerning for acute ischemia Electronically signed by : Armida Guillaume, 01/04/2025 00:52:22
--- OUTSIDE RECORDS SUMMARY | 2025-01-03 21:36 | XMS_ITS | Clinical Summary ---
Author Organization [facility] Address [address] [place] [address] Phone Care Team Providers Care Child Adolescent Care Name Role Phone Unavailable Primary Care Provider Unavailabl e Allergies No known active allergies Medications * This document contains information received from the source organization and may not represent a complete record from that organization. NALOXONE RESCUE KITIndications:Op ioid use disorder, severe, dependence (HCC) 4 mL by Nasal route as needed for Opioid Reversal. To be given as needed to reverse opioid overdose. 1 Kit 0 6 Active hydrochlorothiazi de (MICROZIDE) 12.5 mg Oral CapsuleIndication s:Essential hypertension Take 1 Cap by mouth daily. 90 Cap 3 6 Active meloxicam (MOBIC) 15 mg Oral TabletIndications :Chronic low back pain Take 1 Tab by mouth daily. 30 Tab 2 6 Active buprenorphine-nal oxone (SUBOXONE) 8-2 mg SL FilmIndications:O pioid use disorder, severe, dependence (HCC) Place 1 Film under the tongue daily for 30 days. 30 Each 0 6 Active Active Problems Patient Care Coordination No te Formatting of this note migh t be different from the original. Jacqueline As Expected 10/18/15 Jacqueline Ref#[id number] Contracts: 09/20/15 UDS: 10/18/15 Patient in the process of trying to get prescription benefits-10/16/15 Problem Noted Date Diagnosed Date Encounter for dietary counseling and surveillanc e 11/01/2015 Exercise counseling 11/01/2015 Left hip pain 10/17/2015 Chronic low back pain 10/17/2015 Overview (10/17/2015): Chronic low back pain. No specific injury. Has had epidural, no surgery. Epidural did not help. Last epidurals were in 2013. No new injury or activity. Is on disability. Pain is mild to severe and depends upon activity amount and type. A/w left leg paresthesias. Heat helps. Pain and numbness progressively getting worse. Allergic rhinitis 10/17/2015 Tobacco abuse 09/20/2015 Overview (09/20/2015): stop Alcohol screening 09/20/2015 Overview (09/20/2015): 09/20/15 Screening for depression 09/20/2015 Overview (09/20/2015): 09/20/15 Screening for HIV (human immunodeficiency virus) 09/20/2015 Overview (09/20/2015): 09/20/15 Health care maintenance 09/20/2015 Overview (09/20/2015): rx for zostavax Preventative Health Measures Communication issues identified? no Alcohol Screening Do you drink? yes Drinks per day? Does not drink daily Most drinks at one sitting? 2 mixed drinks CAGE Ever thought about cutting back? no Ever get annoyed about others asking about your drinking? no Ever feel guilty about your drinking? no Ever need an eye nuclear medicine tech in the morning? no Depression Screening: In the past two weeks, how often have you felt down, depressed, or hopeless? None Have you felt little interest or pleasure in doing things? no Fall Risk Screening: Have you had 2 or more falls in the past year or any fall with injuries within the past year? no Tobacco Status - (goals: no tobacco) Does patient currenty use tobacco products? History Smoking status Current Every Day Smoker -- 1.00 packs/day Types: Cigarettes Smokeless tobacco Never Used Ready to quit: Not Answered Counseling given: Not Answered Immunizations - (goals: yearly flu shot, one pneumovax (with booster in 5 years if started before age 65), zostavax 60 and over, Tdap/Tetanus every 10 years) There is no immunization history on file for this patient. Health Maintenance Health Maintenance Topic Date Due Pneumococcal Vaccine (Medium Risk) (1) 1983 Colon Cancer Screening: Occult Blood 2015 Colon Cancer Screening: Colonoscopy 2015 Annual Wellness Exam 09/17/2016 Influenza Vaccine Completed No care call or contact centre team leader to display Patient Self Management - Dietary Compliance compliant most of the time Medication Compliance - compliant most of the time Self Management tools - None Self Management ability - good Willingness to adopt healthy behaviors - good Understanding of current medications - good Exercise - occasionally does core strengthing Richmond Gaines has set the following self management goal: improved diet, increased exercise, weight control Readiness to change: Richmond Gaines is ready to change. Patient Barriers: none No care call or contact centre team leader to display Colon cancer screening 09/20/2015 Overview (09/20/2015): referred 09/20/15 Opioid use disorder, severe, dependence 09/19/19 Overview (12/18/2015): 12/13/15 Pt r/s his appointment with Fabby Walker 11/29/15 Has been to 12 [facility] and counseling Next counseling is next jacqueline ok Counts ok 11/01/15 Has done 12 steps Saw Fabby for counseling Jacqueline aldridge Counts ok. 10/17/15 Jacqueline reviewed. States he did get the full rx but at different vist[facility] so the jacqueline does not reflect the second 7 doses of the previous rx. Counts ok. Counseling today Has been going to AA/NA 10/04/15 Kwan and jacqueline ok Doing well Has counseling with Fabby Walker scheduled. Has been doing aa/na 09/25/15 Counts ok, jacqueline ok Doing well. HPI: 09/19/15 Patient is here to get started in Suboxone program. Substance use Hx: (type, quant, route): Vicodin, Percocet, Suboxone. Patient will do any form of Opiate. Takes orally or by snortting. Takes around 40 mg a day. Suboxone patient took 8 mg in pieces a day when he had it. He got this off the street. Patient injected OXY Frequency: daily How lon years Longest sobriety: 4 months Progression: Patient had back issues for years and 20 years ago started with opiates being prescribed. Last exposure: yesterday. (type, quant, route): Heroin, used around couple grams a week. Used by Injection and snorting. Last did this two months ago. Frequency: daily, 4/10 a day How long: injected for 1 year, before this it was occasionally. Longest sobriety: 4 months Progression: patient was on pain pills and it led to this. Patient could find this easier. Last exposure: 2 months ago. Marijuana years ago, alcohol occasionally, Loratabs, Oxy. Never did cocaine, meth, acid... History of substance use related seizures: no Substances: n/a (Tolerance: A state of adaptation in which exposure to a drug induces changes that result in diminution of one or more of the drug's effects over time.) Evidence of tolerance to any substance: yes Substances: Opiates and Heroin (Dependence: A state of adaptation that is manifested by a drug class specific withdrawal syndrome that can be produced by abrupt cessation, rapid dose reduction, decreasing blood level of the drug, and / or administration of an antagonist.) Evidence of dependence to any substance: yes Substances: Opiates and Heroin (Substance abuse: A maladaptive pattern of substance use leading to clinically significant impairment or distress, as manifested by one or more of the following, occuring with in a 12-month period: 1. Recurrent substance use resulting in a failure to fulfill major role obligations at work, school, or home. 2. Recurrent substance use in situations in which it is physically hazardous. 3. Recurrent substance- related legal problems. 4. Continued substance use despite having persistent or recurrent social or interpersonal problems caused or exacerbated by the effects of the substance. Evidence of substance abuse: yes Substances: Opiates, Heroin Evidence of opioid use disorder: yes (if yes insert DSM5 check list) DSMV Opioid Use Disorder diagnostic criteria Opioid Use Disorder requires at least 2 criteria be met within a 12 month period 1. Opioids are often taken in larger amounts or over a longer period of time than intended. yes 2. There is a persistent desire or unsuccessful efforts to cut down or control opioid use. yes 3. A great deal of time is spent in activities necessary to obtain the opioid, use the opiod, or recover from its effects. yes 4. Craving, or a strong desire to use opioids. yes 5. Recurrent opioid use resulting in failure to fulfill major role obligations at work, school, or home. yes 6. Continued opioid use despite having persistent or recurrent social or interpersonal problems caused or exacerbated by the effects of opioids. yes 7. Important social, occupational or recreational activities are given up or reduced because of opioid use. yes 8. Recurrent opioid use in situations in which it is physically hazardous. yes 9. Continued use despite knowledge of having a persistent or recurrent physical or psychological problem that is likely to have been caused or exacerbated by opioids. yes 10. * Tolerance as defined by either of the following: A. A need for markedly increased amounts of opiods to achieve intoxication or desired effect. yes B. Markedly diminished effect with continued use of the same amount of an opioid. yes 11. * Withdrawal, as manifested by either of the following: A. The characteristic opioid withdrawal syndrome. yes B. The same (or a closely related) substance are taken to relieve or avoid withdrawal symptoms. yes * This criterion is not considered to be met for those individuals taking opioids solely under appropriate medical supervision. Severity: Mild: 2-3 symptoms, Moderate: 4-5 symptoms, Severe: 6 or more symptoms History of opioid withdrawal: yes (If yes insert DSM5 criteria) DSM-5 Criteria for Opioid Withdrawal A. Either of the following 1. Cessation of (or reduction in) opioid use that has been heavy and prolonged (several weeks or longer). yes 2. Administration of an opioid antagonist after a period of opioid use. yes B. Three (or more) of the following, developing within minutes to several days after Criterion A: 1. Dysphoric mood. yes 2. Nausea or vomiting. yes 3. Muscle aches. yes 4. Lacrimation or rhinorrhea. yes 5. Pupillary dilation, piloerection, or sweating. yes 6. Diarrhea. yes 7. Yawning. yes 8. Fever. no 9. Insomnia. yes C. The signs or symptoms in Criterion B cause clinically significant distress or impairment in social, occupational, or other improtant areas of functioning. D. The signs or symptoms are not due to another medical condition and are not better accounted for by another mental disorder, including intoxication or withdrawal from another substance. History of overdose: no Substances: N/A Treatment history: (inpatient / outpatient, MAT, [facility], location, dates) [facility] 2014 only rehab. Went to hospital to get through withdrawals, no over night stay. Patient has not had outpatient treatment. Rare use of AA/NA No counseling outside of [facility]. Consequences of drug use: Patient has lost friends and family. Patient got over drug use. How is pt feeling? good Currently intoxicated? (if yes list symptomology): yes Had Suboxone yesterday Insight, motivation, readiness to change? Ready to change Stage of change (precontemplative, contemplative, preparative, action, maintenance, relapse): precontemplative Past psychiatric history: (Dx, duration, course, treatment): Depression from back issues. Patient is on disability for depression. Not currently being treated. Has never been on medication for this. Previous psych hospital admissions: no Physical abuse hx: no Sexual history: Sexually active: yes Length of time with current partner: None, single Number of partners in lifetime: 30 Practices safe sex: no High risk sexual behavior? no STD hx: no Any current STD symptoms: no Sexual abuse hx: no Social recovery environment: Living situation: On own, apartment Family / social support: Family and friends Relationships: (Single / / / ): Single Children: 1 daughter Problems at school or work? No patient does not work Relational problems with spouse or children? no Involvement in violence? no Legal charges for public intox, altercations, possession or DUI? no Financial problems? no Partner with substance use disorder? no School hx: Graduated high school Work hx: Disabled. Essential hypertension 05/28/2014 Overview (09/20/2015): HTN: Not taking meds. Not well controlled. Denies chest pain and SOB, swelling, dizziness or orthostatics. BP Readings from Last 3 Encounters: 09/19/15 130/98 09/18/15 144/94 06/04/14 128/84 DDD (degenerative disc disease), lumbar 05/28/20 14 Migraines 05/27/2011 Back pain 05/27/2011 Resolved Problems Problem Noted Date Diagnosed Date Resolved Date Abnormal EKG 06/01/2014 09/20/2015 Opiate dependence 05/28/2014 06/04/2014 Immunizations Immunization Administration Dates Next Due Pneumococcal Polysaccharide 23 Valent 11/01/2015 Tdap 11/01/2015 Surgical History Surgery Date Site/Laterality Comments INNER EAR SURGERY Medical History Medical History Date Comments Back problem DJD (degenerative joint disease) Heart abnormality Hypertension Opiate dependence, continuous (HCC) Family History Medical History Relation Name Comments Heart Disease Father High Blood Pressure Mother Relation Name Status Comments Brother 2 Alive Daughter Alive Father Mother Alive Sister 1 Alive Social History Tobacco Use Types Packs/Day Years Used Date Smoking Tobacco: Every Day Cigarettes Smokeless Tobacco: Never Tobacco Cessation:Ready to Q uit: No; Counseling Given: Yes Alcohol Use Standard Drinks/Week Comments No 0 (1 standard drink = 0.6 oz pur e alcohol) Sex and Gender Information Value Date Recorded Sex Assigned at Not on file Legal Sex Male 8:30 PM EDT Gender Identity Not on file Sexual Orientation Not on file Obstetrics History Last Filed Vital Signs Vital Sign Reading Time Taken Comments Blood Pressure 138/84 11/29/2015 1:37 PM EDT Pulse 79 11/29/2015 1:37 PM EDT Temperature 36.4 C (97.6 F) 11/29/2015 1:37 PM EDT Respiratory Rate 13 09/20/2015 7:52 AM EDT Oxygen Saturation 97% 11/29/2015 1:37 PM EDT Inhaled Oxygen Concentration - - Weight 83.5 kg (184 lb) 11/29/2015 1:37 PM EDT Height 180.3 cm (5' 11 ) 11/29/2015 1:37 PM EDT Body Mass Index 25.66 11/29/2015 1:37 PM EDT Plan of Treatment Health Maintenance Due Date Last Done Comments Wellness Exam Medicare 1968 Hepatitis B Vaccine (1 of 3 - 19+ 3-dose series) 1984 Cologuard 2010 Colon Cancer Screening 2010 Colonoscopy 2010 FIT 2010 Sigmoidoscopy 2010 Virtual Colonography 2010 Zoster (1 of 2) 2015 Pneumococcal Vaccine 50+ (2 of 2 - PCV) 10/31/2016 11/01/2015 COVID-19 Vaccine ( - 2023-2 5 season) 2024 Influenza Vaccine (#1) 2025 DTaP/TDaP/Td (2 - Td or Tdap) 10/31/2025 11/01/2015 Meningococcal B Vaccine Aged Out No l onger eligible based on patient's age to complete this topic Insurance [place]IC[place] Advance Directives For more information, please contact: [phone] * Full Code (Latest Code Status on File) Date Activated Date Inactivated Comments 06/01/2014 9:00 PM 06/04/2014 2:07 PM
[2025-01-03] MEDS: 0.9 % SODIUM CHLORIDE 1000ML 1,000 ML 999 ML IV (21:41)
[2025-01-03] MEDS: FAMOTIDINE 20MG/2ML VIAL 20 MG IV (21:41)
--- NOTE | 2025-01-03 21:41 | [facility].EDCP ---
Discharge Plan Disposition Patient Disposition: Home, Self-Care Condition: Good Prescriptions Prescriptions: No Action aspirin [Adult Low Dose Aspirin] 81 mg tablet,delayed release (DR/EC) 81 mg PO DAILY Qty: 30 3RF Repatha SureClick 140 mg/mL pen injector 140 mg SQ Q2W Qty: 2 2RF rosuvastatin 40 mg tablet 20 mg PO HS Qty: 90 3RF metoprolol succinate 25 mg tablet extended release 24 hr 25 mg PO DAILY Qty: 90 1RF lisinopril 5 mg tablet 5 mg PO DAILY Qty: 90 3RF Referrals Follow up/Referrals: Juan Reeves MD [Staff Physician, Cardiology] - See instructions Provider,MD Katalina [Primary Care Provider, Medical] - See instructions Activity Restrictions/Add. Instructions Additional Instructions/Restrictions: Call Dr. Reeves and let them know that you need to see them in clinic. Return to the emergency department for acute or worsening chest pain. Otherwise follow-up with your primary care provider. Clinical Impressions Clinical Impression: Chest pain Print Language Print Language: Urdu Discharge ED Provider: Armida Guillaume HPI <Gissel Mcnamara (ED), SHELL ASSEMBLER - Last Filed: 01/03/25 21:55> General Chief Complaint: Dizziness Stated Complaint: dizzy,headache Time Seen by Provider: 01/03/25 21:28 History of Present Illness HPI narrative: 59-year-old male presents to the ED today with complaint of chest pain and dizziness that started at 9:00 lasted about 30 minutes and now is gone. He is still feels like his heart rate is irregular. On EKG he does have an irregular rhythm but no A-fib or STEMI. He has no nausea or vomiting. No abdominal pain. He does have history of DC 5 or 6 years ago with stents done by [facility]. He has hypertension and hyperlipidemia. He tells me he is on 2 blood thinners and an aspirin. He only takes rosuvastatin occasionally. He is unsure what the names of the medications are. He is a smoker. He tells me he just feels off . He was out in the sun all day today. He did have 6 Gatorade's and 2 prince. He still has muscle cramps all over a lot of the time. He has no shortness of air. No other symptoms at this time. Related Data Previous Rx's ?Medication ?Instructions ?Recorded aspirin 81 mg tablet,delayed 81 mg PO DAILY #30 tabs 01/22/20 release (Adult Low Dose Aspirin) evolocumab 140 mg/mL subcutaneous 140 mg SQ Q2W #2 mL 07/21/23 pen injector (oliviavelasquez Begum) rosuvastatin 40 mg tablet 20 mg (1/2 x 40 mg) PO HS 08/18/23 Cholesterol #90 tabs metoprolol succinate 25 mg 25 mg PO DAILY High blood pressure 04/10/24 tablet,extended release 24 hr #90 tabs lisinopril 5 mg tablet 5 mg PO DAILY #90 tabs 08/28/24 Allergies Allergy/AdvReac Type Severity Reaction Status Date / Time crestor AdvReac Mild fatigue/elizabeth Uncoded 07/21/23 15:45 lgia PFS <Gissel Mcnamara (ED), SHELL ASSEMBLER - Last Filed: 01/03/25 21:55> PFS Disclaimer: The information contained in this section may have been updated after the patient was seen, as this information can be updated by other users. Medical History LV dysfunction Social History Smoking Status: Current every day smoker tobacco type: cigarettes packs per day: 2 alcohol intake: current alcohol intake frequency: holidays/special occasions only substance use type: denies use current occupational status: disabled Travel in the last 8 weeks?: Inside the [place] household members: other housing: other caffeine: Yes Have you lived/traveled outside US in past 30 days?: No Contact w/someone who lives/traveled outside US past 30 days?: No Exposure to someone with infectious disease in past 14 days?: No Do you have a fever (greater than 100.4 F or 38 C)?: No Have you tested positive for COVID-19?: No Exposed to someone with COVID-19 in past 14 days?: No Do you have a sore throat?: No Do you have a cough?: No Do you have any weakness?: No Do you have any diarrhea?: No Are you experiencing any unusual bleeding?: No Do you have any muscle aches/pain?: No Do you have any abdominal pain?: No Are you experiencing loss of taste or smell?: No Other Medical History Have you received the Flu Vaccine for this season: No (ama) Have you received the Pneumonia Vaccine: No <Gissel Mcnamara (ED), SHELL ASSEMBLER - Last Filed: 01/03/25 21:55> ROS Obtained: Yes Systems reviewed as appropriate & no additional complaints except as documented Constitutional Constitutional: Reports as per HPI Physical Exam <Gissel Mcnamara (ED), SHELL ASSEMBLER - Last Filed: 01/03/25 21:55> General General appearance: alert and in no apparent distress Head Head exam: normocephalic Eye Eye exam: Present normal appearance and PERRL ENT ENT exam: Present mucous membranes moist Neck Neck exam: Present trachea midline Chest Chest inspection: Present symmetric chest wall rise Respiratory Respiratory exam: Present normal lung sounds bilaterally Cardiovascular Cardiovascular exam: Present regular rate, irregular rhythm, normal heart sounds, +S1 and +S2 Abdominal Exam Abdominal exam: Present soft and normal bowel sounds Extremities Exam Extremities exam: Present normal inspection, full ROM and normal capillary refill Back Exam Back exam: Present full ROM Neurological Exam Neurological exam: Present alert and oriented X3 Psychiatric Psychiatric exam: Present normal affect and normal mood Skin Skin exam: Present warm and dry HEART Score <Gissel Mcnamara (ED), SHELL ASSEMBLER - Last Filed: 01/03/25 21:55> HEART Score History (anamnesis): Slightly suspicious ECG: Non-specific disturbance Age: 45-65 years Risk factors: 3 or more risk factors Troponin: </= normal limit HEART Score: 4 <Armida Guillaume DO - Last Filed: 01/04/25 09:55> HEART Score HEART Score assessment performed?: Yes HEART Score: 4 Critical Care <Armida Guillaume DO - Last Filed: 01/04/25 09:55> Critical Care Time Critical Care Time: No Medical Decision Making <Gissel Mcnamara (ED), SHELL ASSEMBLER - Last Filed: 01/03/25 21:55> William Inquiry Pt receiving controlled substance: No William was queried for this patient: No Vital Signs Vital Signs: 01/03/25 21:45 01/03/25 22:00 01/03/25 22:30 Temperature 97.8 F Temperature Source Oral Pulse Rate 82 Pulse Rate [Radial] 95 H Respiratory Rate 16 15 13 Blood Pressure 138/86 148/83 H Blood Pressure [Right Arm] 130/81 Blood Pressure Mean [Right Arm] 97 Blood Pressure Source Blood Pressure Position Blood Pressure Position [Right Arm] Sitting 02 Sat by Pulse Oximetry 96 99 Oxygen Delivery Method Room Air 01/04/25 00:01 01/04/25 00:50 Temperature 97.9 F Temperature Source Oral Pulse Rate 67 74 Pulse Rate [Radial] Respiratory Rate 13 16 Blood Pressure 112/63 128/72 Blood Pressure [Right Arm] Blood Pressure Mean [Right Arm] Blood Pressure Source Automatic Cuff Blood Pressure Position Supine Blood Pressure Position [Right Arm] 02 Sat by Pulse Oximetry 98 Oxygen Delivery Method Room Air Room Air Lab Data Labs: Lab Results 01/03/25 21:41: WBC 12.0 H, RBC 5.51, Hgb 16.5, Hct 46.8, MCV 84.9, MCH 29.9, MCHC 35.3, RDW 12.5, Plt Count 244, MPV 9.8, Neut % (Auto) 63.9, Lymph % (Auto) 26.6, [place] % (Auto) 6.5, Eos % (Auto) 2.2, Baso % (Auto) 0.5, Neut # (Auto) 7.7, Lymph # (Auto) 3.2, [place] # (Auto) 0.8, Eos # (Auto) 0.3, Baso # (Auto) 0.1, PT 11.8, INR 1.07, APTT 27.6, Sodium 133 L, Potassium 3.6, Chloride 98, Carbon Dioxide 28, Anion Gap 10.6, BUN 12, Creatinine 0.70, Estimated Creat Clear 149, Estimated GFR 115, Est GFR ( Amer) 140, Glucose 98, Calcium 9.2, Magnesium 1.6, Total Bilirubin 0.9, AST 28, ALT 26, Alkaline Phosphatase 108, Troponin I < 0.01, Total Protein 8.0, Albumin 4.7, Globulin 3.3 H, Albumin/Globulin Ratio 1.4, Lipase 28, HCV Ab AZIZA w/Rflx PCR Qn Negative, HIV Ag/Ab Combo Qual Negative 01/04/25 00:05: Troponin I < 0.01 01/03/25 21:41 01/03/25 21:41 Response Orders (Tests/Meds): ED MEDICATIONS Discontinued Medications Generic Name Dose Route Start Last Admin Trade Name Freq PRN Reason Stop Dose Admin Famotidine 20 mg 01/03/25 21:34 01/03/25 21:41 Famotidine 20mg/2ml Vial IV 01/03/25 21:35 20 mg ONCE ONE Administration Sodium Chloride 1,000 mls @ 999 mls/hr 01/03/25 21:34 01/03/25 21:41 Sod Chlor 0.9% 1000ml Bag IV 01/03/25 22:34 999 mls/hr .Q1H1M ONE Administration Sodium Chloride 8 ml 01/03/25 21:34 Sodium Chloride 0.9% 10ml Vial IV 02/02/25 21:33 NEEDED PRN dilute pepcid ORDERS Category Date Time Status Chest XR -- portable [XR chest portable] Stat Exams 01/03/25 21:34 Completed CBC [Complete Blood Count Auto Diff] Stat Lab 01/03/25 21:41 Completed Comprehensive Metabolic Panel Stat Lab 01/03/25 21:41 Completed HIV Combo Stat Lab 01/03/25 21:41 Completed Hepatitis C Ab Qual. W/ RFX Stat Lab 01/03/25 21:41 Completed Lipase Stat Lab 01/03/25 21:41 Completed Magnesium Stat Lab 01/03/25 21:41 Completed PT INR [Prothrombin Time INR] Stat Lab 01/03/25 21:41 Completed PTT [Activated Partial Thrombo Time] Stat Lab 01/03/25 21:41 Completed Trop I [Troponin I] Stat Lab 01/03/25 21:41 Completed Troponin I Q3H Lab 01/04/25 00:05 Completed MDM Narrative Medical Decision Narrative: patient is a 59-year-old male presenting to the emergency department for evaluation of chest pain, dizziness that started at 2100 lasting about 30 minutes. He felt like his heart rate is irregular. Patient is hemodynamically stable and nontoxic-appearing upon arrival, afebrile. Differential diagnosis includes ACS, arrhythmia, dehydration, among others. Workup will be conducted with hematologic labs, specific imaging. Initial inventions include crystalloid bolus, analgesics. Initial workup shows white count of 12. <Armida Guillaume, - Last Filed: 01/04/25 09:55> Vital Signs Vital Signs: 01/03/25 21:45 01/03/25 22:00 01/03/25 22:30 Temperature 97.8 F Temperature Source Oral Pulse Rate 82 Pulse Rate [Radial] 95 H Respiratory Rate 16 15 13 Blood Pressure 138/86 148/83 H Blood Pressure [Right Arm] 130/81 Blood Pressure Mean [Right Arm] 97 Blood Pressure Source Blood Pressure Position Blood Pressure Position [Right Arm] Sitting 02 Sat by Pulse Oximetry 96 99 Oxygen Delivery Method Room Air 01/04/25 00:01 01/04/25 00:50 Temperature 97.9 F Temperature Source Oral Pulse Rate 67 74 Pulse Rate [Radial] Respiratory Rate 13 16 Blood Pressure 112/63 128/72 Blood Pressure [Right Arm] Blood Pressure Mean [Right Arm] Blood Pressure Source Automatic Cuff Blood Pressure Position Supine Blood Pressure Position [Right Arm] 02 Sat by Pulse Oximetry 98 Oxygen Delivery Method Room Air Room Air Lab Data Labs: Lab Results 01/03/25 21:41: WBC 12.0 H, RBC 5.51, Hgb 16.5, Hct 46.8, MCV 84.9, MCH 29.9, MCHC 35.3, RDW 12.5, Plt Count 244, MPV 9.8, Neut % (Auto) 63.9, Lymph % (Auto) 26.6, [place] % (Auto) 6.5, Eos % (Auto) 2.2, Baso % (Auto) 0.5, Neut # (Auto) 7.7, Lymph # (Auto) 3.2, [place] # (Auto) 0.8, Eos # (Auto) 0.3, Baso # (Auto) 0.1, PT 11.8, INR 1.07, APTT 27.6, Sodium 133 L, Potassium 3.6, Chloride 98, Carbon Dioxide 28, Anion Gap 10.6, BUN 12, Creatinine 0.70, Estimated Creat Clear 149, Estimated GFR 115, Est GFR ( Amer) 140, Glucose 98, Calcium 9.2, Magnesium 1.6, Total Bilirubin 0.9, AST 28, ALT 26, Alkaline Phosphatase 108, Troponin I < 0.01, Total Protein 8.0, Albumin 4.7, Globulin 3.3 H, Albumin/Globulin Ratio 1.4, Lipase 28, HCV Ab AZIZA w/Rflx PCR Qn Negative, HIV Ag/Ab Combo Qual Negative 01/04/25 00:05: Troponin I < 0.01 Response Orders (Tests/Meds): ED MEDICATIONS Discontinued Medications Generic Name Dose Route Start Last Admin Trade Name Freq PRN Reason Stop Dose Admin Famotidine 20 mg 01/03/25 21:34 01/03/25 21:41 Famotidine 20mg/2ml Vial IV 01/03/25 21:35 20 mg ONCE ONE Administration Sodium Chloride 1,000 mls @ 999 mls/hr 01/03/25 21:34 01/03/25 21:41 Sod Chlor 0.9% 1000ml Bag IV 01/03/25 22:34 999 mls/hr .Q1H1M ONE Administration Sodium Chloride 8 ml 01/03/25 21:34 Sodium Chloride 0.9% 10ml Vial IV 02/02/25 21:33 NEEDED PRN dilute pepcid ORDERS Category Date Time Status Chest XR -- portable [XR chest portable] Stat Exams 01/03/25 21:34 Completed CBC [Complete Blood Count Auto Diff] Stat Lab 01/03/25 21:41 Completed Comprehensive Metabolic Panel Stat Lab 01/03/25 21:41 Completed HIV Combo Stat Lab 01/03/25 21:41 Completed Hepatitis C Ab Qual. W/ RFX Stat Lab 01/03/25 21:41 Completed Lipase Stat Lab 01/03/25 21:41 Completed Magnesium Stat Lab 01/03/25 21:41 Completed PT INR [Prothrombin Time INR] Stat Lab 01/03/25 21:41 Completed PTT [Activated Partial Thrombo Time] Stat Lab 01/03/25 21:41 Completed Trop I [Troponin I] Stat Lab 01/03/25 21:41 Completed Troponin I Q3H Lab 01/04/25 00:05 Completed MDM Narrative Medical Decision Narrative: patient is a 59-year-old male presenting to the emergency department for evaluation of chest pain, dizziness that started at 2100 lasting about 30 minutes. He felt like his heart rate is irregular. Patient is hemodynamically stable and nontoxic-appearing upon arrival, afebrile. Differential diagnosis includes ACS, arrhythmia, dehydration, among others. Workup will be conducted with hematologic labs, specific imaging. Initial inventions include crystalloid bolus, analgesics. Initial workup shows white count of 12. Armida Guillaume DO I took over the care of this patient at 10 PM.Patient's labs were reviewed and interpreted by myself, hemoglobin was stable, no leukocytosis. CMP was unremarkable. Initial troponin less than 0.01, second troponin less than 0.01. EKG showed normal sinus rhythm with intermittent sinus arrhythmia, second EKG showed normal sinus rhythm without acute ST or T wave changes concerning for ischemia. Patient never had any return of chest pain in the emergency department, patient was otherwise asymptomatic. Patient's chest x-ray was reviewed and interpreted by myself and showed no acute for consolidation, pneumothorax, pleural effusion or other acute cardiopulmonary process. At this time I felt the patient was appropriate for discharge home. Patient was advised to follow-up with cardiology and return precautions were discussed.
[2025-01-03 21:45] VITALS: BP 130/81; PULSE 95; RESP 16; TEMP 36.6; O2SAT 96; BMI 28.5
--- NOTE | 2025-01-03 21:47 | ECG_ITS ---
APPROVED REPORT Exam: Resting ECG HR:90 bpm ECG Measurements Heart Rate 90 AXES DE 139 P 49 QRSd 92 QRS 6 QT 344 T -4 QTc 392 Conclusion Normal sinus rhythm with occasional PVC no other acute ST or T wave changes concerning for ischemia Electronically signed by : Armida Guillaume, 01/04/2025 00:50:47
[2025-01-03 21:49] LABS: Hematocrit 46.8 % (42.0-52.0); Hemoglobin 16.5 g/dL (14.1-18.0); Immature Granulocytes % 0.3 %; Mean Corpuscular HGB Conc 35.3 g/dL (31.8-35.4); Mean Corpuscular Hemoglobin 29.9 pg (27.0-31.2); Mean Corpuscular Volume 84.9 fl (80-94); Nucleated Red Blood Cells % 0 %; Platelet Count 244 K/mm3 (142-424); Red Blood Count 5.51 M/mm3 (4.60-6.20); Red Cell Distribution Width-SD 38.6 fL; White Blood Count 12.0 K/mm3 (4.8-10.8)
[2025-01-03 21:56] LABS: Albumin Level 4.7 g/dl (3.5-5.0); Chloride 98 mmol/L (98-107); Potassium 3.6 mmoL/L (3.5-5.1); Sodium 133 mmol/L (136-145)
[2025-01-03 21:58] LABS: Alanine Aminotransferase 26 U/L (12-78); Anion Gap 10.6 mEq/L (5-15); Aspartate Amino Transferase 28 U/L (17-59); Blood Urea Nitrogen 12 mg/dl (9-20); Carbon Dioxide 28 mmol/L (22.0-30.0); Creatinine Clearance Estimated 149 mL/min (50-200); Creatinine,Serum 0.70 mg/dl (0.66-1.25); Estimated Glomerular Filt Rate 115 ml/min (>60); GFR (African American) 140 ML/MIN (>60)
[2025-01-03 21:59] LABS: Albumin/Globulin Ratio 1.4 (1.1-1.8); Alkaline Phosphatase 108 U/L (38-126); Bilirubin,Total 0.9 mg/dl (0.2-1.3); Calcium 9.2 mg/dl (8.4-10.2); Globulin 3.3 g/dL (1.3-3.2); Glucose 98 mg/dl (74-100); Lipase 28 U/L (23-300); Magnesium 1.6 mg/dl (1.6-2.3); Total Protein,Serum 8.0 g/dl (6.3-8.2)
[2025-01-03 22:00] VITALS: BP 138/86; PULSE 82; RESP 15; O2SAT 99
[2025-01-03 22:01] LABS: Activated Partial Thrombo Time 27.6 seconds (22.8-30.6); INR 1.07 (0.9-1.1); Prothrombin Time 11.8 seconds (10.1-12.5)
[2025-01-03 22:14] LABS: Troponin I < 0.01 ng/ml (0.00-0.034)
[2025-01-03 22:30] VITALS: BP 148/83; RESP 13
[2025-01-03 23:01] LABS: Hepatitis C Ab Qual. W/ RFX NEGATIVE (Negative)
[2025-01-04 00:01] VITALS: BP 112/63; PULSE 67; RESP 13; O2SAT 98
[2025-01-04 00:38] LABS: Troponin I < 0.01 ng/ml (0.00-0.034)
[2025-01-04 00:50] VITALS: BP 128/72; PULSE 74; RESP 16; TEMP 36.6; O2SAT 98
== END 2025-01-04 00:59 | disposition home or self-care (01) ==
PROVIDERS: Nurse Practitioner; Emergency Provider Student in an Organized Health Care Education/Training Program
DX: R07.89 Other chest pain (principal); R42 Dizziness and giddiness; I25.10 Atherosclerotic heart disease of native coronary artery without angina pectoris; I10 Essential (primary) hypertension; E78.5 Hyperlipidemia, unspecified; F17.210 Nicotine dependence, cigarettes, uncomplicated
CPT/HCPCS: 71045; 80053; 83690; 83735; 84484; 85025; 85610; 85730; 86803; 87389; 93005; 96365; 96375; 99285; J7030

== ENCOUNTER 2025-01-11 14:27 | Outpatient (CLI) | payer MEDICARE, SELFPAY ==
--- OUTSIDE RECORDS SUMMARY | 2025-01-11 14:30 | XMS_ITS | Clinical Summary ---
Author Organization [facility] Address [address] [place] [address] Phone Care Team Providers Care Warp Drawer Name Role Phone Unavailable Primary Care Provider [...] the original. Jacqueline As Expected 10/18/15 Jacqueline Ref#[id number] Contracts: 09/20/15 UDS: 10/18/15 Patient in the [...] your drinking? no Ever need an eye lacemaker in the morning? no Depression Screening: In [...] Exam 09/17/2016 Influenza Vaccine Completed No care operations team leader to display Patient Self Management [...] to change. Patient Barriers: none No care operations team leader to display Colon cancer screening [...] Advance Directives For more information, please contact: [phone] * Full Code (Latest Code Status on File) Date Activated Date Inactivated Comments 06/01/2014 9:00 PM 06/04/2014 2:07 PM
[2025-01-11 15:55] LABS: Albumin Level 3.7 g/dl (3.5-5.0)
[2025-01-11 15:58] LABS: Alanine Aminotransferase 26 U/L (12-78); Alkaline Phosphatase 120 U/L (38-126); Aspartate Amino Transferase 27 U/L (17-59); Bilirubin,Direct 0.2 mg/dl (0.0-0.4); Bilirubin,Indirect 0.2 mg/dL (0.0-0.9); Bilirubin,Total 0.4 mg/dl (0.2-1.3); Bilirubin,Unconjugated 0.2 mg/dL (0.0-1.1); Cholesterol 234 mg/dl (140-200); Total Protein,Serum 7.3 g/dl (6.3-8.2); Triglycerides 311 mg/dl (30-150)
[2025-01-11 15:59] LABS: HDL Cholesterol 33 mg/dl (40-60)
== END 2025-01-11 23:59 | disposition home or self-care (01) ==
LOC: LAB 14:28
PROVIDERS: Visit Provider Physician Assistant
DX: I25.10 Atherosclerotic heart disease of native coronary artery without angina pectoris (principal); I10 Essential (primary) hypertension
CPT/HCPCS: 36415; 80061; 80076

== ENCOUNTER 2025-01-30 07:14 | Outpatient (CLI) | payer MEDICARE, SELFPAY ==
--- NOTE | 2025-01-30 | CA_ITS ---
APPROVED REPORT Exam: Pharmacologic Technologist: Oxana Calvin Ht: 6 ft 11 in Wt: 207 lbs BSA: 2.40 m2 HR: 60 bpm BP: 126/59 mmHg Stress Test Details Test: Lexiscan HR Resting HR: 60 bpm Max Heart Rate (APMHR): 161.170320 bpm Max HR Achieved: 81 bpm Target HR (85% APMHR): 136.043657 bpm % of APMHR: 50.31 Recovery HR: 65 bpm BP Resting BP: 126.0/59.0 mmHg Max BP: 126.0/75.0 mmHg Recovery BP: 119.0/64.0 mmHg ECG Resting ECG: Sinus rhythm Stress ECG Conclusion Symptoms: None Arrhythmias/Ectopy: PVCs noted ST-T Changes: Unremarkable with Lexiscan Conclusion: None-diagnostic ECG - Lexiscan Electronically signed by : Lisha Ibarra MD 01/30/2025 13:15:15
--- OUTSIDE RECORDS SUMMARY | 2025-01-30 07:17 | XMS_ITS | Clinical Summary ---
Author Organization [facility] Address [address] [place] [address] Phone Care Team Providers Care Blanking Machine Operator Name Role Phone Unavailable Primary Care Provider [...] the original. Jacqueline As Expected 10/18/15 Jacqueline Ref#[id number] Contracts: 09/20/15 UDS: 10/18/15 Patient in the [...] your drinking? no Ever need an eye supervisor scouring pads in the morning? no Depression Screening: In [...] Exam 09/17/2016 Influenza Vaccine Completed No care steam box operator to display Patient Self Management - Dietary [...] to change. Patient Barriers: none No care steam box operator to display Colon cancer screening 09/20/2015 Overview [...] Advance Directives For more information, please contact: [phone] * Full Code (Latest Code Status on File) Date Activated Date Inactivated Comments 06/01/2014 9:00 PM 06/04/2014 2:07 PM
--- NOTE | 2025-01-30 07:30 | NM_ITS ---
APPROVED REPORT Exam: Nuclear Stress Test Indication: high bp..high cholesterol Patient Location: Outpatient Stress Tech: Oxana Calvin LEAH Tech:SIS Eric RT(R)(N) Ht: 5 ft 11 in Wt: 207 lbs HR: 60 bpm BP: 126/59 mmHg BSA: 2.14 m2 TID: 1.29 BMI: 28.8 History: high bp..high cholesterol Procedure: Patient received 0.4 mg of intravenous Lexiscan, resting heart rate 60 bpm, resting blood pressure 126/59 mmHg, with Lexiscan maximum heart rate achieved was 79 bpm which is 85 % of the maximum predicted heart rate and blood pressure was 126/75 mmHg. With Lexiscan, patient denied any complaint of chest pain. Cardiac Stress and Resting SPECT Images: Cardiac Stress and Resting SPECT images were obtained using technetium 99m Myoview 29.3 mCi stress and 10.33 mCi at rest. Resting and stress imaging in supine and prone positions demonstrate a large sized, moderate, partially reversible perfusion defect in the inferior LV wall. There is also increase in transient ischemic dilatation ratio (TID 1.29), which may be suggestive of possible multivessel disease or balanced ischemia. Gated imaging demonstrates mild reduction in global LV systolic function. LVEF is calculated at 48%. Conclusion: Large sized, moderate, partially reversible perfusion defect in the inferior LV wall. Findings are suggestive of partial reversible ischemia. There is also increase in transient ischemic dilatation ratio (TID 1.29), which may be suggestive of possible multivessel disease or balanced ischemia. Gated imaging demonstrates mild reduction in global LV systolic function. LVEF is calculated at 48%. Electronically signed by : Lisha Ibarra MD 01/30/2025 13:14:50
[2025-01-30] MEDS: ISOTOPE MYOVIEW (PER STUDY) 1 DOSE IV (10:40)
[2025-01-30] MEDS: SODIUM CHLORIDE 0.9% 10ML SYR (RAD ONLY) 10 ML IV ×2 (10:40)
== END 2025-01-30 23:59 | disposition home or self-care (01) ==
PROVIDERS: Visit Provider Physician Assistant
DX: I49.3 Ventricular premature depolarization (principal); I25.10 Atherosclerotic heart disease of native coronary artery without angina pectoris; I10 Essential (primary) hypertension; E78.00 Pure hypercholesterolemia, unspecified; R94.39 Abnormal result of other cardiovascular function study
CPT/HCPCS: 78452; 93016; 93017; 93018; A9502; J2785

== ENCOUNTER 2025-02-13 07:35 | Day surgery (SDC) | payer MEDICARE, SELFPAY ==
[2025-02-13] VITALS (12 sets, daily range): BP systolic 120–158; BP diastolic 75–92; PULSE 60–82; RESP 16–20; TEMP 36.7–36.8; O2SAT 95–100; BMI 28.5
--- NOTE | 2025-02-13 07:06 | IR_ITS ---
APPROVED REPORT Patient Location: Outpatient Pull Over Machine Operator: SIS Nguyen RT (R) PROCEDURES Left heart catheterization Left ventriculogram Selective coronary angiogram Drug-eluting stent deployment to the proximal mid and distal dominant right coronary INDICATION Abnormal Myoview, Coronary artery disease, Angina pectoris, Informed consent was obtained prior to the procedure. COMPLICATIONS NONE Estimated Blood Loss: LESS THAN 10 ML TECHNIQUE One percent lidocaine used to anesthetize the right anterior aspect of the wrist. The right radial artery was accessed via the Seldinger technique. A 6 Austrian sheath was placed in the right radial artery. 2.5 mg of Verapamil, 800 mcg of nitroglycerin, 1mg Lidocaine and 5000 U Heparin were given through the arterial sheath. The JL3 catheter was also used to perform left heart catheterization, left ventriculogram and selective coronary angiogram. Therapeutic heparin was administered giving a therapeutic ACT and the guide liner was advanced into the ostial proximal segment of the right coronary artery followed by Choice PT extra-support wire. A 3.5 x 38 mm Rich frontier stent was deployed at 20 zach reducing the stenosis. An additional 3.5 x 22 mm Mears frontier stent was placed proximal to the for stent yet still overlapping and deployed at 24 zach. An additional 3.5 x 30 mm Mears frontier stent was placed distal to the first stent yet still overlapping and deployed at 16 zach. The balloon was brought back a half length and deployed at 20 zach to post dilate. Excellent angiograph results were obtained. The RV marginal was subtotally occluded at the end of the procedure and jailed. Multiple attempts were tried to cannulate the right ventricular marginal branch which was unsuccessful. 800 mcg of intracoronary nitroglycerin was administered. At the end of the procedure the RV marginal was patent with MATTHEW I flow ANGIOGRAPHIC RESULTS The left main artery Normal The left anterior descending artery Has proximal and mid vessel 20 and 30% stenoses with a 20% stenosis in the first diagonal artery The circumflex artery Nondominant with diffuse 10 to 20% luminal regularities The right coronary artery Large and dominant with a stent in the proximal segment which has 50% concentric in-stent restenosis followed by 90% concentric stenosis distal to the stent followed by additional 40 and 50% distal stenoses. The RV marginal branch has an ostial 90% stenosis The JONES ventriculogram reveals Reduced at 45 to 50% The left ventricular end-diastolic pressure 10 mmHg IMPRESSION Coronary artery disease as described above Severe to critical disease throughout the right coronary with successful reconstruction of the proximal mid and distal right coronary severe disease reduced to 0% with 3 contiguous drug-eluting stents Severely diseased RV marginal branch with MATTHEW I flow at the end of the procedure due to RV jailing Slightly reduced ejection fraction Normal LVEDP PLAN 1. Dual antiplatelet therapy 2. Patient lost the RV marginal branch and has mild ST elevation. I do recommend admission to the hospital and monitoring overnight 3. Echocardiogram in the morning 4. LDL less than 55 to be achieved with high intensity statin 5. Cardiac rehabilitation 6. Avoidance of tobacco products Electronically signed by : Juan Reeves MD 02/13/2025 11:05:52
[2025-02-13 08:24] LABS: Hematocrit 47.6 % (42.0-52.0); Hemoglobin 16.3 g/dL (14.1-18.0); Immature Granulocytes % 0.5 %; Mean Corpuscular HGB Conc 34.2 g/dL (31.8-35.4); Mean Corpuscular Hemoglobin 29.7 pg (27.0-31.2); Mean Corpuscular Volume 86.9 fl (80-94); Nucleated Red Blood Cells % 0 %; Platelet Count 240 K/mm3 (142-424); Red Blood Count 5.48 M/mm3 (4.60-6.20); Red Cell Distribution Width-SD 39.4 fL; White Blood Count 9.2 K/mm3 (4.8-10.8)
[2025-02-13 08:36] LABS: Anion Gap 10.3 mEq/L (5-15); Blood Urea Nitrogen 13 mg/dl (9-20); Calcium 9.5 mg/dl (8.4-10.2); Carbon Dioxide 31 mmol/L (22.0-30.0); Chloride 100 mmol/L (98-107); Creatinine Clearance Estimated 149 mL/min (50-200); Creatinine,Serum 0.70 mg/dl (0.66-1.25); Estimated Glomerular Filt Rate 115 ml/min (>60); GFR (African American) 140 ML/MIN (>60); Glucose 119 mg/dl (74-100); Potassium 4.3 mmoL/L (3.5-5.1); Sodium 137 mmol/L (136-145)
[2025-02-13] MEDS: 0.9 % SODIUM CHLORIDE 500 ML 25 ML IV (10:00)
[2025-02-13] MEDS: NITROGLYCERIN 800MCG/8ML SYR (CATH LAB) 800 MCG IA ×2 (10:00→10:35)
[2025-02-13] MEDS: VERAPAMIL 2.5MG/ML 2ML VIAL 2.5 MG IV (10:01)
[2025-02-13] MEDS: LIDOCAINE 1% 10ML MDV 10 ML IJ (10:01)
[2025-02-13] MEDS: HEPARIN 1,000 UNITS/ML 10ML VIAL (CATH LAB) 5000 UNIT IV ×3 (10:01→10:59)
[2025-02-13] MEDS: HEPARIN 1,000 UNITS/500ML NS (CATH LAB) 3000 UNIT IV (10:02)
[2025-02-13] MEDS: PRASUGREL 10MG TAB 60 MG PO (10:21)
[2025-02-13] MEDS: FENTANYL 100MCG/2ML VIAL 50 MCG IV (10:35)
[2025-02-13] MEDS: MIDAZOLAM HCL 1MG/ML 5ML VIAL 1 MG IV (10:35)
[2025-02-13] MEDS: IOPAMIDOL-370 (76%);100ML BOTTLE 125 ML IV (11:05)
[2025-02-13 11:06] LABS: CATHL Activated Clotting Time 298 SEC (74-125)
== END 2025-02-13 14:08 | disposition home or self-care (01) ==
PROVIDERS: Visit Provider Internal Medicine
PROC: 4A023N7 Measurement of Cardiac Sampling and Pressure, Left Heart, Percutaneous Approach (ICD-10-PCS; CPT 93452; principal; 2025-02-13 07:30)
DX: I25.119 Atherosclerotic heart disease of native coronary artery with unspecified angina pectoris (principal); T82.855A Stenosis of coronary artery stent, initial encounter; I11.0 Hypertensive heart disease with heart failure; I50.22 Chronic systolic (congestive) heart failure; E78.2 Mixed hyperlipidemia; R94.31 Abnormal electrocardiogram [ECG] [EKG]; R94.39 Abnormal result of other cardiovascular function study; R10.11 Right upper quadrant pain; F17.210 Nicotine dependence, cigarettes, uncomplicated; Z79.01 Long term (current) use of anticoagulants; Z79.82 Long term (current) use of aspirin; Z79.899 Other long term (current) drug therapy; Z88.8 Allergy status to other drugs, medicaments and biological substances; Z95.5 Presence of coronary angioplasty implant and graft; Y84.8 Other medical procedures as the cause of abnormal reaction of the patient, or of later complication, without mention of misadventure at the time of the procedure
CPT/HCPCS: 80048; 85025; 85347; 92928; 93458; 99152; 99153; C1725; C1769; C1874; C9600; J1200; J1644; J2003; J2704; J3010; J7040; Q9967

== ENCOUNTER 2025-02-16 09:20 | Outpatient (CLI) | payer MEDICARE, SELFPAY ==
--- OUTSIDE RECORDS SUMMARY | 2025-02-16 09:23 | XMS_ITS | Clinical Summary ---
Author Organization [facility] Address [address] [place] [address] Phone Care Team Providers Care Mimeograph Operator Name Role Phone Unavailable Primary Care [...] the original. Jacqueline As Expected 10/18/15 Jacqueline Ref#[id number] Contracts: 09/20/15 UDS: 10/18/15 Patient in the [...] your drinking? no Ever need an eye bilingual social worker in the morning? no Depression Screening: In [...] 09/17/2016 Influenza Vaccine Completed No care steam plant records clerk to display Patient Self Management - Dietary [...] change. Patient Barriers: none No care steam plant records clerk to display Colon cancer screening 09/20/2015 Overview [...] COVID-19 Vaccine ( - 2023-2 5 season) 2025 Influenza Vaccine (#1) 2025 DTaP/TDaP/Td (2 - Td or Tdap) 10/31/2025 11/01/2015 Meningococcal B Vaccine Aged Out No l onger eligible based on patient's age to complete this topic Insurance [place]ICARE [place] Advance Directives For more information, please contact: [phone] * Full Code (Latest Code Status on File) Date Activated Date Inactivated Comments 06/01/2014 9:00 PM 06/04/2014 2:07 PM
[2025-02-16 09:50] LABS: Hematocrit 45.7 % (42.0-52.0); Hemoglobin 15.9 g/dL (14.1-18.0); Immature Granulocytes % 0.5 %; Mean Corpuscular HGB Conc 34.8 g/dL (31.8-35.4); Mean Corpuscular Hemoglobin 30.1 pg (27.0-31.2); Mean Corpuscular Volume 86.6 fl (80-94); Nucleated Red Blood Cells % 0 %; Platelet Count 252 K/mm3 (142-424); Red Blood Count 5.28 M/mm3 (4.60-6.20); Red Cell Distribution Width-SD 39.7 fL; White Blood Count 11.0 K/mm3 (4.8-10.8)
[2025-02-16 10:11] LABS: Chloride 103 mmol/L (98-107); Potassium 4.0 mmoL/L (3.5-5.1); Sodium 139 mmol/L (136-145)
[2025-02-16 10:14] LABS: Anion Gap 11.0 mEq/L (5-15); Blood Urea Nitrogen 14 mg/dl (9-20); Carbon Dioxide 29 mmol/L (22.0-30.0); Creatinine,Serum 0.70 mg/dl (0.66-1.25); Estimated Glomerular Filt Rate 115 ml/min (>60); GFR (African American) 140 ML/MIN (>60)
[2025-02-16 10:15] LABS: Calcium 9.5 mg/dl (8.4-10.2); Glucose 171 mg/dl (74-100)
== END 2025-02-16 23:59 | disposition home or self-care (01) ==
LOC: LAB 09:21
PROVIDERS: Visit Provider Internal Medicine
DX: I25.10 Atherosclerotic heart disease of native coronary artery without angina pectoris (principal)
CPT/HCPCS: 36415; 80048; 85025

== ENCOUNTER 2025-02-20 10:40 | Outpatient (CLI) | payer MEDICARE, SELFPAY ==
[2025-02-20] MEDS: INCLISIRAN SODIUM 284 MG/1.5 ML SYRINGE SUBCUT (10:49)
--- OUTSIDE RECORDS SUMMARY | 2025-02-20 10:54 | XMS_ITS | Clinical Summary ---
Author Organization [facility] Address [address] [place] [address] Phone Care Team Providers Care Simplex Operator Name Role Phone Unavailable Primary Care [...] the original. Jacqueline As Expected 10/18/15 Jacqueline Ref#[id number] Contracts: 09/20/15 UDS: 10/18/15 Patient in the [...] your drinking? no Ever need an eye pharmacy teacher in the morning? no Depression Screening: In [...] Exam 09/17/2016 Influenza Vaccine Completed No care food court team member to display Patient Self Management - Dietary [...] to change. Patient Barriers: none No care food court team member to display Colon cancer screening 09/20/2015 Overview [...] Advance Directives For more information, please contact: [phone] * Full Code (Latest Code Status on File) Date Activated Date Inactivated Comments 06/01/2014 9:00 PM 06/04/2014 2:07 PM
== END 2025-02-20 10:55 | disposition home or self-care (01) ==
LOC: INF 10:41
PROVIDERS: Visit Provider Physician Assistant
DX: Z01.89 Encounter for other specified special examinations (principal)
CPT/HCPCS: 96372; J1306

== ENCOUNTER 2025-03-26 09:58 | Outpatient (CLI) | payer MEDICARE, SELFPAY ==
--- OUTSIDE RECORDS SUMMARY | 2025-03-26 10:10 | XMS_ITS | Clinical Summary ---
Author Organization 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 Jacqueline As Expected 10/18/15 Jacqueline Ref#[id number] Contracts: 09/20/15 UDS: 10/18/15 Patient in the [...] your drinking? no Ever need an eye grill attendant in the morning? no Depression Screening: In [...] Exam 09/17/2016 Influenza Vaccine Completed No care count team clerk to display Patient Self Management - [...] to change. Patient Barriers: none No care count team clerk to display Colon cancer screening 09/20/2015 [...] on file Sexual Orientation Not on file Last Filed Vital Signs Vital Sign Reading [...] Advance Directives For more information, please contact: [phone] * Full Code (Latest Code Status on File) Date Activated Date Inactivated Comments 06/01/2014 9:00 PM 06/04/2014 2:07 PM
--- NOTE | 2025-03-26 10:15 | CA_ITS ---
APPROVED REPORT EXAM: Comprehensive 2D, Doppler, and color-flow Echocardiogram Process Description Writer: Analy Mittal RT(R) Ht: 5 ft 11 in Wt: 206lbs BSA: 2.13 BP: 115/62 mmHg Indications: cad, hx of HFrEF, palpitations. 2D Dimensions LVEF (Gomez's) 56.80 % M: 52 - 72 LV Volume 89.50 mL M: 62 - 150 LV Volume Index 41.8 mL/m2 M: 34 - 74 LA Volume 28.30 mL LA Volume Index 13.22 mL/m2 (M/F) 16-34 EF AP4 53.70 % EF AP2 58.6 % EF BP 56.8 % GL Strain -14.4 % M-Mode Dimensions RVDd 2.63 cm (0.9-2.6) LA Diam 4.26 cm (1.9-4.0) LVDd 3.74 cm (3.5-5.7) LVDs 2.76 cm (3.5-5.7) IVSd 0.85 cm (0.6-1.1) PWd 0.67 cm (0.6-1.1) EF (Teich) 52.20% FS 26.20% EDV (Teich) 59.60 mL TAPSE 2.12 (<1.7) ESV (Teich) 28.50 mL LV Diastology E Decel Time 187 (160-240 msec) E/A Ratio 1.18 Mitral Valve MV A Velocity 87.0 (40-130 cm/s) E/A Ratio 1.18 Left Ventricle The left ventricle is normal size. Left ventricular systolic function is mildly reduced. There is increased left ventricular wall thickness. There is mild global hypokinesis. Regional wall motion is difficult to evaluate due to technically difficult study. Grade 1 diastolic dysfunction is present. LVEF is 45%. Right Ventricle The right ventricle is mildly to moderately dilated. The right ventricular systolic function is mildly reduced. Atria The left atrium is mildly dilated. The right atrium is moderately dilated. There is no color Doppler evidence of interatrial shunt. Aortic Valve The aortic valve is mildly thickened. There is no hemodynamically significant aortic valvular stenosis. No aortic regurgitation is present. Mitral Valve The mitral valve is normal in structure. No evidence of mitral valve stenosis. Trace mitral regurgitation is present. Tricuspid Valve The tricuspid valve leaflets are thin and pliable. Mild tricuspid regurgitation. RVSP is 20-25 mmHg. Pulmonic Valve The pulmonary valve is grossly normal in structure. Mild pulmonic valve regurgitation is present. Great Vessels The aortic root is normal in size. IVC is normal in size and collapses >50% with inspiration. Pericardium There is no pericardial effusion. Other Information Study Quality: Technically Difficult Conclusion Mildly reduced LV systolic function (LVEF 45%). Mild to moderate RV dilation with mild reduction in RV function. Biatrial dilation. Mild TR, mild PI. Electronically signed by : Lisha Ibarra MD 03/28/2025 21:14:27
== END 2025-03-26 23:59 | disposition home or self-care (01) ==
LOC: RT 09:59
PROVIDERS: Visit Provider Physician Assistant
DX: I08.8 Other rheumatic multiple valve diseases (principal); I25.10 Atherosclerotic heart disease of native coronary artery without angina pectoris; I50.20 Unspecified systolic (congestive) heart failure
CPT/HCPCS: 93306

== ENCOUNTER 2025-04-03 10:05 | Outpatient (CLI) | payer MEDICARE, SELFPAY ==
--- NOTE | 2025-04-10 10:18 | PC.NURSE ---
PULMONARY REHAB NOTE: PT CALLED 2 TIMES ( 02/28/2025; 03/21/2025) VOICEMAILS LEFT
== END 2025-04-03 23:59 | disposition home or self-care (01) ==
LOC: RT 10:06
PROVIDERS: Visit Provider Physician Assistant
DX: I47.10 Supraventricular tachycardia, unspecified (principal); R94.31 Abnormal electrocardiogram [ECG] [EKG]
CPT/HCPCS: 93225; 93227

== ENCOUNTER 2025-04-26 11:27 | Outpatient (CLI) | payer MEDICARE, SELFPAY ==
--- OUTSIDE RECORDS SUMMARY | 2025-04-26 11:43 | XMS_ITS | Clinical Summary ---
Author Organization 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 Jaqcueline As Expected 10/18/15 Jacqueline Ref#[id number] Contracts: 09/20/15 UDS: 10/18/15 Patient in the [...] your drinking? no Ever need an eye bladder tier in the morning? no Depression Screening: In [...] Exam 09/17/2016 Influenza Vaccine Completed No care service team leader to display Patient Self Management [...] to change. Patient Barriers: none No care service team leader to display Colon cancer screening [...] PCV) 10/31/2016 11/01/2015 COVID-19 Vaccine ( - 2024-2 6 season) 2025 Influenza Vaccine (#1) 2025 DTaP/TDaP/Td (2 - Td or Tdap) 10/31/2025 11/01/2015 Meningococcal B Vaccine Aged Out No l onger eligible based on patient's age to complete this topic Insurance [place]ICARE [place] Advance Directives For more information, please contact: [phone] * Full Code (Latest Code Status on File) Date Activated Date Inactivated Comments 06/01/2014 9:00 PM 06/04/2014 2:07 PM
== END 2025-04-26 23:59 | disposition home or self-care (01) ==
LOC: RT 11:28
PROVIDERS: Visit Provider Physician Assistant
DX: I49.1 Atrial premature depolarization (principal); I47.19 Other supraventricular tachycardia; I49.3 Ventricular premature depolarization; I47.29 Other ventricular tachycardia; I48.0 Paroxysmal atrial fibrillation
CPT/HCPCS: 93270

== ENCOUNTER 2025-05-22 10:48 | Outpatient (CLI) | payer MEDICARE, SELFPAY ==
[2025-05-22 11:06] VITALS: BP 151/66; PULSE 71; RESP 16; TEMP 36.7; O2SAT 98
[2025-05-22] MEDS: INCLISIRAN SODIUM 284 MG/1.5 ML SYRINGE SUBCUT (11:06)
[2025-05-22 11:25] VITALS: BP 122/63; PULSE 72; RESP 14; O2SAT 98
== END 2025-05-22 23:59 | disposition home or self-care (01) ==
LOC: INF 10:51
PROVIDERS: Visit Provider Physician Assistant
DX: E78.2 Mixed hyperlipidemia (principal)
CPT/HCPCS: 96372; J1306